=== PATIENT | female | born 1940 | race Caucasian/White ===

== ENCOUNTER 2016-08-22 17:10 | Inpatient (IN) | payer MEDICARE, MEDICAID ==
[~2016-08-22] VITALS: Ht 167.6 cm; Wt 75.8 kg
--- OUTSIDE RECORDS SUMMARY | 2016-08-22 17:16 | XMS REPORT | Continuity of Care Document ---
Author Author [facility] Organization [facility] Address Unknown Phone Unavailable Support Name Relationship Address Phone PENNY FISCHER MD Caregiver [address] [place] [address] [facility] Next Of Kin [address] [place] [id number] Insurance Providers Payer Name Policy Number Subscriber Name Relationship Medicare A And B [id number] Nina Brush 17 Self / Same As Patient Problems Active Problems Medical Problem Onset Date Status Chest pain Unknown Acute Medications Current Home Medications Medication Dose Units Route Directions Days/Qty Instructions Start Date Aspirin 81 Mg 81 Mg ORAL Daily 10/17/15 Atorvastatin Calcium 40 Mg 40 Mg ORAL Bedtime 10/17/15 Calcium Carbonate/Vitamin D3 1 Each 1 Each ORAL 4X Day Before Meals/At Bedtime 10/17/15 Diltiazem Hcl 240 Mg 240 Mg ORAL Daily 10/17/15 Hydrochlorothiazide 25 Mg 25 Mg ORAL Daily 10/17/15 Sennosides/Docusate Sodium 1 Each 1 Each ORAL Twice A Day 10/17/15 Acetaminophen (Tylenol) 325 Mg 325 Mg ORAL As Directed as needed for Pain 10/17/15 Social History No social history. Hospital Discharge Instructions Current inpatient/outpatient. Discharge instructions are currently unavailable. Plan of Care Prescriptions Functional Status No functional status results. Allergies, Adverse Reactions, Alerts Allergen Type Severity Reaction Status Last Updated Penicillin Allergy Unknown Active 10/17/15 Sulfa (Sulfonamide Antibiotics) Allergy Unknown Active 10/17/15 Iodine Allergy Unknown Active 10/17/15 latex Allergy Unknown Active 10/17/15 Immunizations No immunization records. Vital Signs Acute Vital Signs Vital Response Date/Time Temperature (Fahrenheit) 97.6 10/17/2015 9:06am Pulse 86 bpm 10/17/2015 9:06am Respirations 20 10/17/2015 9:06am Results Pending Laboratory Results Test Name Collection Date/Time Procedures Procedure Status Date Provider(s) X-RAY EXAM KNEE 4 OR MORE Completed 10/07/15 Encounters Encounter Location Arrival/Admit Date Discharge/Depart Date Attending Provider Registered Clinic [facility] 10/17/15 9:07am PENNY FISCHER MD Departed Emergency Room [facility] 10/17/15 8:37am 10/17/15 11:31am PENNY FISCHER MD Registered [facility] 10/14/15 1:33pm VIRAJ YADAV MD Registered Clinic [facility] 10/07/15 3:38pm VIRAJ YADAV MD
--- OUTSIDE RECORDS SUMMARY | 2016-08-22 17:16 | XMS REPORT | Continuity of Care Document ---
Author Author [facility] Organization [facility] Address Unknown Phone Unavailable Care Team Providers Care Landscape Horticulture Instructor Name Role Phone VIRAJ YADAV MD Primary Care Physician [phone] Insurance Providers Payer Name Policy Number Subscriber Name Relationship Medicare A And B [id number] Nina Brush 17 Self / Same As Patient Advance Directives Directive Response Recorded Date/Time Advanced Directives Yes 08/02/16 7:46am Type Durable Power of Academic Coach 08/02/16 7:46am Chief Complaint and Reason for Visit Chief Complaint Injury Reason for Visit [id number] Problems Active Problems Medical Problem Onset Date Status Abdominal pain ~12/20/2015 Acute Bladder wall thickening ~12/20/2015 Acute Chest pain Unknown Acute Contusion of hip, right Unknown Acute Nausea & vomiting ~12/20/2015 Acute Medications Current Home Medications Medication Dose Units Route Directions Days/Qty Instructions Start Date Aspirin 81 Mg 325 Mg ORAL Daily 10/17/15 Atorvastatin Calcium 40 Mg 40 Mg ORAL Bedtime 10/17/15 Calcium Carbonate/Vitamin D3 1 Each 1 Each ORAL 4X Day Before Meals/At Bedtime 10/17/15 Diltiazem Hcl 240 Mg 240 Mg ORAL Daily 10/17/15 Hydrochlorothiazide 25 Mg 25 Mg ORAL Daily 10/17/15 Potassium Chloride 10 Meq 20 Meq ORAL Twice A Day 12/20/15 Ondansetron Hcl 4 Mg 4 Mg ORAL Every 4HRS 10 12/20/15 Simethicone (Mylicon) 80 Mg 80 Mg ORAL Three Times A Day 08/02/16 Acetaminophen/Codeine 1 Tab 1-2 Tab ORAL Every 4HRS as needed for Pain 08/02/16 Past Home Medications Medication Directions Ordered Status Sennosides/Docusate Sodium 1 Each Tablet, 1 Each Oral Twice A Day 10/17/15 Discontinued Acetaminophen (Tylenol) 325 Mg Tablet, 325 Mg Oral As Directed as needed for Pain 10/17/15 Discontinued Social History Query Response Start Date Stop Date Smoking Status Unknown, if ever smoked Hospital Discharge Instructions No hospital discharge instructions. Plan of Care Discharge Date 08/02/16 9:44am Disposition 01 HOME OR SELF-CARE Condition at Discharge Stable Instructions/Education Provided Contusion (DC) Prescriptions See Medication Section Referrals VIRAJ YADAV MD - Additional Instructions/Education Ice or heat to area of pain for 20 minutes at a time at least twice a day. Return if symptoms worsen, if new symptoms develop, or for any other concerns. Some of your test results may not be complete prior to your leaving the Emergency Department. The Emergency Department is not authorized to give test results over the phone. Please contact the doctor's office listed in this packet of information for your final results. Follow up with your primary care physician or return to the Emergency Department for worsening or worrisome symptoms. * Emergency Department phone number: [phone], x [phone] MEDICAL RECORD If you need copies of your X-rays, call [phone]. If you need copies of your medical record, including lab results, a signed authorization for release of records will be required. A telephone call for release of Health Information is not allowed. BILLING Billing can sometimes be confusing and frustrating. To help avoid confusion in the future, please take a moment to acquaint yourself with the billing parties for services. SERVICE BILLING [facility] Emergency Room Services [facility] Physician Services [facility] X-rays [facility] Patients will receive bills for services from the appropriate provider. If you have any questions about your [facility] bill, our staff will be happy to assist you. Please call [phone], and ask for the billing department. THANK YOU for choosing [facility] as your emergency care provider! Care Plan and Goals ~~Discharge Care Plan~~ Problem: Contusion, pain to affected area, fall. Goal: Decreased contusion and pain to affected area. Instructions: Apply ice to area for 15-20 minutes every 3-4 hours. Elevate extremity above the level of the heart, if applicable. Splint area with pillow or blanket to any chest/abdomen injuries. Use incentive spirometry as directed. Take at least 10 deep breaths per hour. Take medication(s) as directed. Follow up with regular physician or specialist as directed. Exercise as tolerated or directed by physician. Functional Status No functional status results. Allergies, Adverse Reactions, Alerts Allergen Type Severity Reaction Status Last Updated Penicillin Allergy Unknown Active 08/02/16 Sulfa (Sulfonamide Antibiotics) Allergy Unknown Active 08/02/16 Iodine Allergy Unknown Active 08/02/16 latex Allergy Unknown Active 08/02/16 Immunizations No immunization records. Vital Signs Acute Vital Signs Vital Response Date/Time Temperature (Fahrenheit) 98.4 08/02/2016 9:43am Pulse 95 bpm 08/02/2016 9:43am Respirations 17 08/02/2016 9:43am Height 5 ft 7 in Weight 160 lb Body Mass Index 25.0 kg/m^2 Results Laboratory Results Test Name Result Units Flags Reference Collection Date/Time Result Date/ Time Comments White Blood Count 4.78 10^3uL 4.0-11.0 08/02/2016 7:50am 08/02/2016 8: 04am Red Blood Count 4.03 10^6uL 4.00-5.00 08/02/2016 7:50am 08/02/2016 8: 04am Hemoglobin 12.2 g/dL 12.0-15.5 08/02/2016 7:50am 08/02/2016 8:04am Hematocrit 35.40 % 35.00-45.00 08/02/2016 7:50am 08/02/2016 8:04am Mean Corpuscular Volume 88 FL 80-100 08/02/2016 7:50am 08/02/2016 8: 04am Mean Corpuscular Hemoglobin 30.3 PG 26.0-34.0 08/02/2016 7:50am 2016 8:04am Mean Corpuscular Hemoglobin Concent 34.5 g/dL 31.0-37.0 08/02/2016 7: 50am 08/02/2016 8:04am Red Cell Distribution Width 12.3 % 11.8-15.6 08/02/2016 7:50am 2016 8:04am Platelet Count 259 10^3uL 150-450 08/02/2016 7:50am 08/02/2016 8:04am Mean Platelet Volume 10.4 FL H 6.0-9.5 08/02/2016 7:50am 08/02/2016 8: 04am Neutrophils (%) (Auto) 46 % L 51-67 08/02/2016 7:50am 08/02/2016 8:04am Lymphocytes (%) (Auto) 39 % 20-46 08/02/2016 7:50am 08/02/2016 8:04am Monocytes (%) (Auto) 10 % 3-11 08/02/2016 7:50am 08/02/2016 8:04am Eosinophils (%) (Auto) 5 % H 0-4 08/02/2016 7:50am 08/02/2016 8:04am Basophils (%) (Auto) 0 % 0-2 08/02/2016 7:50am 08/02/2016 8:04am Neutrophils # (Auto) 2.2 X10^3 08/02/2016 7:50am 08/02/2016 8:04am Lymphocytes # (Auto) 1.9 X10^3 08/02/2016 7:50am 08/02/2016 8:04am Monocytes # (Auto) 0.5 X10^3 08/02/2016 7:50am 08/02/2016 8:04am Eosinophils # (Auto) 0.2 10^3uL 08/02/2016 7:50am 08/02/2016 8:04am Basophils # (Auto) 0.0 10^3uL 08/02/2016 7:50am 08/02/2016 8:04am Prothrombin Time 13.5 SEC H 10.0-12.5 08/02/2016 7:50am 08/02/2016 8: 25am Prothromb Time International Ratio 1.2 0.8-1.4 08/02/2016 7:50am 8:25am Activated Partial Thromboplast Time 30.0 SEC 26.3-36.8 08/02/2016 7: 50am 08/02/2016 8:25am Sodium Level 139 mmol/L # 135-150 08/02/2016 7:50am 08/02/2016 8:26am Potassium Level 3.0 mmol/L L 3.5-5.1 08/02/2016 7:50am 08/02/2016 8: 26am Chloride Level 102 mmol/L 98-108 08/02/2016 7:50am 08/02/2016 8:26am Carbon Dioxide Level 27 mmol/L 22-29 08/02/2016 7:50am 08/02/2016 8: 26am Anion Gap 12.8 MEQ/L -08/02/2016 7:50am 08/02/2016 8:26am Blood Urea Nitrogen 8 mg/dL 7-18 08/02/2016 7:50am 08/02/2016 8:26am Creatinine 0.67 mg/dL 0.6-1.2 08/02/2016 7:50am 08/02/2016 8:26am BUN/Creatinine Ratio 12 10-20 08/02/2016 7:50am 08/02/2016 8:26am Estimat Glomerular Filtration Rate 103.3 08/02/2016 7:50am 2016 8:26am Estimated GFR (Non- 85.4 08/02/2016 7:50am 2016 8:26am Glucose Level 93 mg/dL # 70-110 08/02/2016 7:50am 08/02/2016 8:26am Calculated Osmolality 266 mosm/L L 280-300 08/02/2016 7:50am 08/02/2016 8:26am Calcium Level 9.9 mg/dL 8.8-10.8 08/02/2016 7:50am 08/02/2016 8:26am Calcium/Ionized Calcium Ratio 4.4 mg/dL 3.8-4.6 08/02/2016 7:50am 08/02 8:26am Total Bilirubin 0.9 mg/dL 0.1-1.0 08/02/2016 7:50am 08/02/2016 8:26am Alkaline Phosphatase 146 U/L H 38-126 08/02/2016 7:50am 08/02/2016 8: 26am Aspartate Amino Transf (AST/SGOT) 35 U/L 15-37 08/02/2016 7:50am 2016 8:26am Alanine Aminotransferase (ALT/SGPT) 41 U/L 30-65 08/02/2016 7:50am 8:26am Total Protein 7.0 g/dL 6.4-8.5 08/02/2016 7:50am 08/02/2016 8:26am Albumin 3.8 g/dL 3.4-5.0 08/02/2016 7:50am 08/02/2016 8:26am Albumin/Globulin Ratio 1.187 1.1-1.8 08/02/2016 7:50am 08/02/2016 8: 26am Procedures No known history of procedures. Encounters Encounter Location Arrival/Admit Date Discharge/Depart Date Attending Provider Departed Emergency Room [facility] 08/02/16 7:45am 08/02/16 9:44am JEAN MARIE BULLARD MD Registered Clinic [facility] 08/02/16 7:35am JEAN MARIE BULLARD MD Recent Diagnosis
--- OUTSIDE RECORDS SUMMARY | 2016-08-22 17:16 | XMS REPORT | Continuity of Care Document ---
Author Author [facility] Address Unknown Phone Unavailable Allergies Active Description Code Type Severity Reaction Onset Reported/Identified Relationship to Patient Clinical Status Yes Latex 8921 Unknown N/A Yes iodine 852 1 N/A N/A Yes latex 8921 1 N/A N/A Yes Sulfa (Sulfonamide Antibiotics) 491 3 N/A N/A Yes Iodine 852 Unknown SWELLING 09/07/2005 Yes Prednisone 2164 Unknown RASH 09/07/2005 Yes Sulfa (Sulfonamide Antibiotics) 491 Unknown RASH 09/07/2005 Yes iodine [id number] Drug Allergy Unknown N/A 08/02/2016 Yes latex [id number] Drug Allergy Unknown N/A 08/02/2016 Yes Penicillins [id number] Drug Allergy Unknown N/A 08/02/2016 Yes Sulfa (Sulfonamide Antibiotics) [id number] Drug Allergy Unknown N/A 08/02/2016 Medications Problems Date Dx Coded Attending Type Code Diagnosis Diagnosed By 10/11/2015 VIRAJ YADAV MD, Ot S82.035A NONDISPLACED TRANSVERSE FRACTURE OF LEFT 10/11/2015 VIRAJ YADAV MD, Ot X58.XXXA EXPOSURE TO OTHER SPECIFIED FACTORS, INI 10/13/2015 VIRAJ YADAV MD, Ot S82.035A NONDISPLACED TRANSVERSE FRACTURE OF LEFT 10/13/2015 VIRAJ YADAV MD, Ot X58.XXXA EXPOSURE TO OTHER SPECIFIED FACTORS, INI 10/14/2015 VIRAJ YADAV MD, Ot S82.035A NONDISPLACED TRANSVERSE FRACTURE OF LEFT 10/14/2015 VIRAJ YADAV MD, Ot X58.XXXA EXPOSURE TO OTHER SPECIFIED FACTORS, INI 10/14/2015 VIRAJ YADAV MD, Ot S82.035A NONDISPLACED TRANSVERSE FRACTURE OF LEFT 10/14/2015 VIRAJ YADAV MD, Ot X58.XXXA EXPOSURE TO OTHER SPECIFIED FACTORS, INI 10/17/2015 VIRAJ YADAV MD Ot S82.035A NONDISPLACED TRANSVERSE FRACTURE OF LEFT 10/17/2015 VIRAJ YADAV MD Ot X58.XXXA EXPOSURE TO OTHER SPECIFIED FACTORS, INI 10/17/2015 VIRAJ YADAV MD Ot S82.035A NONDISPLACED TRANSVERSE FRACTURE OF LEFT 10/17/2015 VIRAJ YADAV MD Ot X58.XXXA EXPOSURE TO OTHER SPECIFIED FACTORS, INI 10/17/2015 PENNY FISCHER MD Ot I10 ESSENTIAL (PRIMARY) HYPERTENSION 10/17/2015 PENNY FISCHER MD Ot I25.10 ATHSCL HEART DISEASE OF [place] CORONARY 10/17/2015 PENNY FISCHER MD Ot R07.2 PRECORDIAL PAIN 10/17/2015 PENNY FISCHER MD Ot R07.89 OTHER CHEST PAIN 10/17/2015 PENNY FISCHER MD Ot Z95.5 PRESENCE OF CORONARY ANGIOPLASTY IMPLANT 10/17/2015 VIRAJ YADAV MD Ot S82.035A NONDISPLACED TRANSVERSE FRACTURE OF LEFT 10/17/2015 VIRAJ YADAV MD Ot X58.XXXA EXPOSURE TO OTHER SPECIFIED FACTORS, INI 10/19/2015 VIRAJ YADAV MD Ot S82.035A NONDISPLACED TRANSVERSE FRACTURE OF LEFT 10/19/2015 VIRAJ YADAV MD Ot X58.XXXA EXPOSURE TO OTHER SPECIFIED FACTORS, INI 10/19/2015 VIRAJ YADAV MD Ot S82.035A NONDISPLACED TRANSVERSE FRACTURE OF LEFT 10/19/2015 VIRAJ YADAV MD Ot X58.XXXA EXPOSURE TO OTHER SPECIFIED FACTORS, INI 10/20/2015 VIRAJ YADAV MD Ot I48.1 PERSISTENT ATRIAL FIBRILLATION 10/21/2015 VIRAJ YADAV MD Ot S82.035A NONDISPLACED TRANSVERSE FRACTURE OF LEFT 10/21/2015 VIRAJ YADAV MD Ot X58.XXXA EXPOSURE TO OTHER SPECIFIED FACTORS, INI 10/21/2015 VIRAJ YADAV MD Ot I48.1 PERSISTENT ATRIAL FIBRILLATION 10/21/2015 VIRAJ YADAV MD Ot S82.035A NONDISPLACED TRANSVERSE FRACTURE OF LEFT 10/21/2015 VIRAJ YADAV MD, Ot X58.XXXA EXPOSURE TO OTHER SPECIFIED FACTORS, INI 10/21/2015 VIRAJ YADAV MD, Ot I48.1 PERSISTENT ATRIAL FIBRILLATION 10/22/2015 VIRAJ YADAV MD, Ot I48.1 PERSISTENT ATRIAL FIBRILLATION 10/26/2015 PENNY FISCHER MD, Ot I10 ESSENTIAL (PRIMARY) HYPERTENSION 10/26/2015 PENNY FISCHER MD, Ot I25.10 ATHSCL HEART DISEASE OF [place] CORONARY 10/26/2015 PENNY FISCHER MD Ot R07.2 PRECORDIAL PAIN 10/26/2015 PENNY FISCHER MD Ot R07.89 OTHER CHEST PAIN 10/26/2015 PENNY FISCHER MD, Ot Z95.5 PRESENCE OF CORONARY ANGIOPLASTY IMPLANT 10/26/2015 PENNY FISCHER MD Ot R07.89 OTHER CHEST PAIN 10/27/2015 VIRAJ YADAV MD, Ot E03.4 ATROPHY OF THYROID (ACQUIRED) 10/27/2015 VIRAJ YADAV MD, Ot E78.0 PURE HYPERCHOLESTEROLEMIA 10/27/2015 VIRAJ YADAV MD, Ot K71.2 TOXIC LIVER DISEASE WITH ACUTE HEPATITIS 10/27/2015 VIRAJ YADAV MD, Ot E03.4 ATROPHY OF THYROID (ACQUIRED) 10/27/2015 VIRAJ YADAV MD, Ot E78.0 PURE HYPERCHOLESTEROLEMIA 10/27/2015 VIRAJ YADAV MD, Ot K71.2 TOXIC LIVER DISEASE WITH ACUTE HEPATITIS 10/28/2015 VIRAJ YADAV MD, Ot E03.4 ATROPHY OF THYROID (ACQUIRED) 10/28/2015 VIRAJ YADAV MD, Ot E78.0 PURE HYPERCHOLESTEROLEMIA 10/28/2015 VIRAJ YADAV MD, Ot K71.2 TOXIC LIVER DISEASE WITH ACUTE HEPATITIS 10/29/2015 VIRAJ YADAV MD, Ot D50.8 OTHER IRON DEFICIENCY ANEMIAS 10/29/2015 VIRAJ YADAV MD, Ot E03.4 ATROPHY OF THYROID (ACQUIRED) 10/29/2015 VIRAJ YADAV MD, Ot E78.0 PURE HYPERCHOLESTEROLEMIA 10/29/2015 VIRAJ YADAV MD, Ot G72.0 DRUG-INDUCED MYOPATHY 10/29/2015 VIRAJ YADAV MD, Ot K71.2 TOXIC LIVER DISEASE WITH ACUTE HEPATITIS 10/29/2015 VIRAJ YADAV MD, Ot M81.0 AGE-RELATED OSTEOPOROSIS W/O CURRENT PAT 10/29/2015 VIRAJ YADAV MD, Ot R79.89 OTHER SPECIFIED ABNORMAL FINDINGS OF BLO 10/29/2015 VIRAJ YADAV MD, Ot S82.035A NONDISPLACED TRANSVERSE FRACTURE OF LEFT 10/29/2015 VIRAJ YADAV MD, Ot X58.XXXA EXPOSURE TO OTHER SPECIFIED FACTORS, INI 11/01/2015 VIRAJ YADAV MD, Ot M19.011 PRIMARY OSTEOARTHRITIS, RIGHT SHOULDER 11/05/2015 VIRAJ YADAV MD, Ot I48.1 PERSISTENT ATRIAL FIBRILLATION 11/15/2015 PENNY FISCHER MD, Ot R07.89 OTHER CHEST PAIN 11/16/2015 VIRAJ YADAV MD, Ot D50.8 OTHER IRON DEFICIENCY ANEMIAS 11/16/2015 VIRAJ YADAV MD, Ot E03.4 ATROPHY OF THYROID (ACQUIRED) 11/16/2015 VIRAJ YADAV MD, Ot E78.0 PURE HYPERCHOLESTEROLEMIA 11/16/2015 VIRAJ YADAV MD, Ot G72.0 DRUG-INDUCED MYOPATHY 11/16/2015 VIRAJ YADAV MD, Ot K71.2 TOXIC LIVER DISEASE WITH ACUTE HEPATITIS 11/16/2015 VIRAJ YADAV MD, Ot M81.0 AGE-RELATED OSTEOPOROSIS W/O CURRENT PAT 11/16/2015 VIRAJ YADAV MD, Ot R79.89 OTHER SPECIFIED ABNORMAL FINDINGS OF BLO 11/17/2015 VIRAJ YADAV MD, Ot M19.011 PRIMARY OSTEOARTHRITIS, RIGHT SHOULDER 11/28/2015 W M12.811 Rotator cuff tear arthropathy of right shoulder 12/20/2015 FORREST CASTILLO MD Ot N32.89 OTHER SPECIFIED DISORDERS OF BLADDER 12/20/2015 FORREST CASTILLO MD Ot R10.84 GENERALIZED ABDOMINAL PAIN 12/20/2015 FORREST CASTILLO MD Ot R11.2 NAUSEA WITH VOMITING, UNSPECIFIED 12/30/2015 FORREST CASTILLO MD Ot N32.89 OTHER SPECIFIED DISORDERS OF BLADDER 12/30/2015 FORREST CASTILLO MD Ot R10.84 GENERALIZED ABDOMINAL PAIN 12/30/2015 FORREST CASTILLO MD Ot R11.2 NAUSEA WITH VOMITING, UNSPECIFIED 01/07/2016 VICENTA FLORES, VIRAJ Raymundo Ot K57.32 DVTRCLI OF LG INT W/O PERFORATION OR ABS 01/11/2016 VIRAJ YADAV MD Ot K57.32 DVTRCLI OF LG INT W/O PERFORATION OR ABS 02/04/2016 VIRAJ YADAV MD, Ot K57.32 DVTRCLI OF LG INT W/O PERFORATION OR ABS 02/26/2016 LEONEL MILES S D50.9 IRON DEFICIENCY ANEMIA, UNSPECIFIED [place] 02/26/2016 LEONEL MILES E78.5 HYPERLIPIDEMIA, UNSPECIFIED [place] 02/26/2016 LOENEL MILES E87.6 HYPOKALEMIA [place] 02/26/2016 LE[place] MILES I10 ESSENTIAL (PRIMARY) HYPERTENSION [place] 02/26/2016 LEONEL MILES S I25.10 ATHEROSCLEROTIC HEART DISEASE OF [place] CORONARY ARTERY WITHOUT ANGINA PECTORIS [place] 02/26/2016 LEONEL MILES I25.2 OLD MYOCARDIAL INFARCTION [place] 02/26/2016 LEONEL MILES I48.91 UNSPECIFIED ATRIAL FIBRILLATION [place] 02/26/2016 [place] MILES M06.9 RHEUMATOID ARTHRITIS, UNSPECIFIED [place] 02/26/2016 [place] P R07.89 OTHER CHEST PAIN [place] 02/26/2016 [place] S Z95.5 PRESENCE OF CORONARY ANGIOPLASTY IMPLANT AND GRAFT [place] 02/26/2016 LENO[place] MILES R06.9 UNSPECIFIED ABNORMALITIES OF BREATHING [place] 03/24/2016 W M12.811 Rotator cuff tear arthropathy of right shoulder 04/24/2016 W M12.811 Rotator cuff tear arthropathy of right shoulder 04/24/2016 W S49.91XA Right shoulder injury, initial encounter 04/24/2016 LEONEL MILES P M54.5 LOW BACK PAIN [place] 05/24/2016 VICENTA FLORES, VIRAJ Raymundo Ot Z85.51 PERSONAL HISTORY OF MALIGNANT NEOPLASM O 06/12/2016 VICENTA FLORES, VIRAJ R Ot Z85.51 PERSONAL HISTORY OF MALIGNANT NEOPLASM O 08/02/2016 JEAN MARIE BULLARD MD Ot S70.01XA CONTUSION OF RIGHT HIP, INITIAL ENCOUNTE 08/02/2016 JEAN MARIE BULLARD MD Ot W05.0XXA FALL FROM NON-MOVING WHEELCHAIR, INITIAL 08/02/2016 JEAN MARIE BULLARD MD Ot Y92.[address] IN C[facility] PLACE 08/02/2016 JEAN MARIE BULLARD MD Ot Y93.89 ACTIVITY, OTHER SPECIFIED 08/02/2016 JEAN MARIE BULLARD MD Ot Z91.81 HISTORY OF FALLING 08/04/2016 JEAN MARIE BULLARD MD Ot S70.01XA CONTUSION OF RIGHT HIP, INITIAL ENCOUNTE 08/04/2016 JEAN MARIE BULLARD MD Ot W05.0XXA FALL FROM NON-MOVING WHEELCHAIR, INITIAL 08/04/2016 JEAN MARIE BULLARD MD Ot Y92.[address] IN [facility] PLACE 08/04/2016 JEAN MARIE BULLARD MD Ot Y93.89 ACTIVITY, OTHER SPECIFIED 08/04/2016 JEAN MARIE BULLARD MD Ot Z91.81 HISTORY OF FALLING 08/07/2016 JEAN MARIE BULLARD MD Ot M25.551 PAIN IN RIGHT HIP 08/07/2016 JEAN MARIE BULLARD MD Ot W05.0XXA FALL FROM NON-MOVING WHEELCHAIR, INITIAL 08/07/2016 JEAN MARIE BULLARD MD Ot Y92.[address] IN C[facility] PLACE Procedures Code Description [place] [address] OFFICE/OUTPATIENT VISIT NEW 11/11/201507847 DRAIN/INJ JOINT/BURSA W/O US 11/23/2015 94494 OFFICE/OUTPATIENT VISIT EST 11/23/2015 J1030 Methylprednisolone 40 MG inj 11/23/2015 J3490 Drugs unclassified injection 11/23/2015 58604 No Charge Visit 03/21/2016 DRAIN/INJ JOINT/BURSA W/O US 03/21/2016 J1030 Methylprednisolone 40 MG inj 03/21/2016 J3490 Drugs unclassified injection 03/21/2016 Results Test Result Range Complete blood count (CBC) with automated white blood cell (WBC) differential - 12/20/15 12:44 Blood automated leukocyte count 8.45 4.0 -11.0 Erythrocytes 4.40 4.00-5.00 12.0-16.0;g/dL 13.4 12.0-15.5 Hematocrit 37.70 35.00-45.00 Automated erythrocyte mean corpuscular volume 86 80-100 Mean corpuscular hemoglobin (MCH) determination 30.5 26.0-34.0 Automated erythrocyte mean corpuscular hemoglobin concentration measurement ( mass/volume) 35.5 31.0-37.0 Erythrocyte distribution width 13.1 11.8 -15.6 Automated blood platelet count 270 150- 450 Automated blood platelet mean volume measurement 10.2 6.0-9.5 Automated neutrophil percentage 84 51- 67 Lymphocytes/100 leukocytes 10 20-46 Automated monocyte percentage 6 3-11 Eosinophil count auto 0 0-4 Automated basophil percentage 0 0-2 Automated blood neutrophil count 7.1 Blood lymphocytes count (number/volume) 0.9 Automated blood monocyte count 0.5 Blood absolute eosinophil count 0.0 Basophils 0.0 Comprehensive metabolic panel - 12/20/15 12:44 Sodium measurement 134 70-110 Carbon dioxide measurement 24 22-29 Serum or plasma anion gap 17.8 3-15 BLOOD UREA NITROGEN 10 7-18 CREATININE SERUM 0.46 0.6-1.2 Brucella species antibody panel (IgG, IgM) 22 10-20 Estimated glomerular filtration rate (GFR) 159.8 Estimated glomerular filtration rate (GFR) non- 132.1 OSMOLALITY,CALCULATED 252 280-300 CALCIUM 10.1 8.8-10.8 Calculated ionized calcium measurement 4.3 3.8-4.6 BILIRUBIN,TOTAL 1.5 0.1-1.0 Serum or plasma alkaline phosphatase measurement 121 38-126 ASPARTATE AMINO TRANSFERASE 31 15-37 ALANINE AMINOTRANSFERASE 23 30-65 Serum or plasma total protein measurement 7.7 6.4-8.5 Serum or plasma albumin measurement 4.5 3.4-5.0 Serum or plasma albumin/globulin mass ratio 1.406 1.1-1.8 Lipase measurement - 12/20/15 12:44 Lipase measurement 271 23-300 UA CULTURE IF INDICATED* - 12/20/15 13:10 COLLECTION METHOD RANDOM VOIDED Color of urine by auto Yellow Urine appearance determination Cloudy Urine pH measurement by automated test strip 7.5 5.0 - 8.0 Specific gravity of urine by automated test strip 1.020 1.005-1.030 Urine protein measurement by test strip (mass/volume) 1+ Negative Urine glucose detection by automated test strip Negative Negative Urine erythrocytes count by automated test strip (number/volume) Trace-lysed Negative Urine ketones detection by automated test strip 1+ Negative Urine nitrite detection by test strip Negative Negative Urine total bilirubin detection by automated test strip Negative Negative Urine urobilinogen measurement by automated test strip (mass/volume) 0.2 0.2-1.0 Urine leukocyte esterase detection by dipstick Negative Negative Microscopic examination of urine - 12/20/15 13:10 Urine volume measurement 12 mL Urine erythrocytes detection by automated method 0-2 Automated urine sediment leukocyte count by microscopy (number/high power field ) Bacteria None Seen SQUAMOUS EPITHELIAL CELL,UR 2-5 MUCOUS,URINE 1+ Amorphous sediment detection in urine sediment by light microscopy 3+ URINALYSIS, DIPSTICK ONLY - 04/18/16 15:30 COLOR STRAW STRAW CLARITY/APPEARANCE CLEAR CLEAR BILIRUBIN URINE HEADER Interpret positive Bilirubin results with caution. Large amounts of urobilinogen in the urine affect the color change of the bilirubin test (false positive). Highly basic urines (pH>9) might show false-positive readings on bilirubin. False-positive readings are obtained during treatment with imipenem, penicillin, and p- aminosalicyclic acid. UROBILINOGEN (URINALYSIS) NORMAL NORMAL SP GRAV 1.015 1.005-1.025 PH 6.0 6.0-8.0 LEUKO NEG NEG NITRITE NEG NEG PROTEIN NEG. NEG. GLUCOSE NORMAL NORMAL KETONES NEG NEG BILIRUBIN NEG NEG BLOOD NEG NEG CBC NO DIFF (HEMOGRAM) - 04/18/16 15:30 WBC - WHITE CELL COUNT 10.2 X10(3) 4.5-11.0 RBC - RED CELL COUNT 4.65 X10(6) 4.20-5.40 PLATELET COUNT 272 X10(3) 150-450 HEMOGLOBIN 14.5 g/dl 12.0-16.0 HEMATOCRIT 42.1 % 38.0-47.0 MCV 90.5 fL 80.0-96.0 MCH 31 pg 27-31 MCHC 34.4 % 32.0-36.0 CULTURE, URINE - 04/18/16 15:30 Urine Culture Source: Urine Collected: 04/18/16 15:30 Complete blood count (CBC) with automated white blood cell (WBC) differential - 08/02/16 07:50 Blood automated leukocyte count 4.78 4.0 -11.0 Erythrocytes 4.03 4.00-5.00 12.0-16.0;g/dL 12.2 12.0-15.5 Hematocrit 35.40 35.00-45.00 Automated erythrocyte mean corpuscular volume 88 80-100 Mean corpuscular hemoglobin (MCH) determination 30.3 26.0-34.0 Automated erythrocyte mean corpuscular hemoglobin concentration measurement ( mass/volume) 34.5 31.0-37.0 Erythrocyte distribution width 12.3 11.8 -15.6 Automated blood platelet count 259 150- 450 Automated blood platelet mean volume measurement 10.4 6.0-9.5 Automated neutrophil percentage 46 51- 67 Lymphocytes/100 leukocytes 39 20-46 Automated monocyte percentage 10 3-11 Eosinophil count auto 5 0-4 Automated basophil percentage 0 0-2 Automated blood neutrophil count 2.2 Blood lymphocytes count (number/volume) 1.9 Automated blood monocyte count 0.5 Blood absolute eosinophil count 0.2 Basophils 0.0 Prothrombin time (PT) with international normalized ratio (INR) - 08/02/16 07: 50 Prothrombin time (PT) in platelet poor plasma by coagulation assay 13.5 10.0-12.5 INR 1.2 0.8-1.4 Activated partial thromboplastin time (aPTT) in platelet poor plasma bycoagulation assay - 08/02/16 07:50 Activated partial thromboplastin time (aPTT) in platelet poor plasma bycoagulation assay 30.0 26.3-36.8 Comprehensive metabolic panel - 08/02/16 07:50 Sodium measurement 93 70-110 CARBON DIOXIDE 27 22-29 Serum or plasma anion gap 12.8 3-15 BLOOD UREA NITROGEN 8 7-18 CREATININE SERUM 0.67 0.6-1.2 Brucella species antibody panel (IgG, IgM) 12 10-20 Estimated glomerular filtration rate (GFR) 103.3 Estimated glomerular filtration rate (GFR) non- 85.4 OSMOLALITY,CALCULATED 266 280-300 CALCIUM 9.9 8.8-10.8 Calculated ionized calcium measurement 4.4 3.8-4.6 BILIRUBIN,TOTAL 0.9 0.1-1.0 Serum or plasma alkaline phosphatase measurement 146 38-126 ASPARTATE AMINO TRANSFERASE 35 15-37 ALANINE AMINOTRANSFERASE 41 30-65 Serum or plasma total protein measurement 7.0 6.4-8.5 Serum or plasma albumin measurement 3.8 3.4-5.0 Serum or plasma albumin/globulin mass ratio 1.187 1.1-1.8 Encounters ACCT No. Visit Date/Time Discharge Status Pt. Type Provider Facility Loc./Unit Complaint [id number] 08/02/2016 07:45:00 2016 09:44:00 DIS Emergency JUAN MIGUEL FLORES, [facility] ED [id number] 12/20/2015 11:45:00 2015 19:19:00 DIS Emergency ANNA FLORES, [facility] ED [id number] 10/17/2015 08:37:00 2015 11:31:00 DIS Emergency AALIYAH FLORES, [facility] ED [id number] 08/02/2016 07:35:00 ACT Outpatient JUAN MIGUEL FLORES, [facility] EMS [id number] 05/18/2016 10:44:00 ACT Outpatient VICENTA FLORES , [facility] RAD BLADDER TUMOR R SIDE [id number] 01/05/2016 09:22:00 ACT Outpatient VICENTA FLORES , [facility] LAB [id number] 10/28/2015 09:43:00 ACT Outpatient VICENTA FLORES , [facility] RAD [id number] 10/27/2015 16:16:00 ACT Outpatient VICENTA FLORES , [facility] LAB [id number] 10/17/2015 09:07:00 ACT Outpatient AALIYAH FLORES, [facility] EMS [id number] 10/14/2015 13:33:00 ACT Outpatient VICENTA FLORES , [facility] RT [id number] 10/07/2015 15:38:00 ACT Outpatient VICENTA FOLRES , [facility] RAD
--- OUTSIDE RECORDS SUMMARY | 2016-08-22 17:16 | XMS REPORT | Continuity of Care Document ---
Author Author [facility] Organization [facility] Address Unknown Phone Unavailable Care Team Providers Care Customer Solutions Specialist Name Role Phone VIRAJ VAIL MD Primary Care Physician [phone] Insurance Providers Payer Name Policy Number Subscriber Name Relationship Medicare A And B [id number] Nina Brush 18 Self / Same As Patient Advance Directives Directive Response Recorded Date/Time Advanced Directives Unknown 12/20/15 11:49am Chief Complaint and Reason for Visit Chief Complaint GI Complaint Reason for Visit Abdominal pain Nausea & vomiting Bladder wall thickening Problems Active Problems Medical Problem Onset Date Status Abdominal pain Unknown Acute Bladder wall thickening Unknown Acute Chest pain Unknown Acute Nausea & vomiting Unknown Acute Medications Current Home Medications Medication [...] As Directed as needed for Pain 10/17/15 Potassium Chloride 10 Meq 20 Meq ORAL Daily 12/20/15 Ondansetron Hcl 4 Mg 4 Mg ORAL Every 4HRS 10 12/20/15 Social History Query Response Start Date Stop Date Smoking Status Unknown, if ever smoked Hospital Discharge Instructions No hospital discharge instructions. Plan of Care Discharge Date 12/20/15 7:19pm Disposition 01 HOME OR SELF-CARE Condition at Discharge Stable Instructions/Education Provided Acute Nausea and Vomiting (ED) Acute Abdominal Pain (ED) Prescriptions See Medication Section Referrals VIRAJ VAIL MD - Additional Instructions/Education Follow up with Dr. Vail tomorrow if symptoms persist Zofran 4 mg ODT - dissolve in mouth every 6 hours as needed for nausea/vomiting Follow up with Dr. Vail within the next week to discuss the CT findings regarding your bladder. Return if symptoms worsen Clear diet - advance as tolerated Some of your test results may not [...] worrisome symptoms. * Emergency Department phone number: [phone], x [phone]* MEDICAL RECORD If you need copies of your X-rays, call [phone] x [phone]. If you need copies of [...] the billing parties for services. SERVICE BILLING [facility] Emergency Room Services [facility] Physician Services [facility] X-rays [facility] Patients will receive bills for services from the appropriate provider. If you have any questions about your [facility] bill, our staff will be happy to assist you. Please call [phone], and ask for the billing department. THANK YOU for choosing [facility] as your emergency care provider! Care Plan and Goals ~~Discharge Care Plan~~ Problem: Nausea, vomiting or diarrhea Goal: Decrease in nausea, vomiting or diarrhea Instructions: Encourage fluids approximately 6-8 glasses of water or noncarbonated fluids. Take medication(s) as directed. Follow home discharge instructions. Follow up with primary care physicians or production superintendent hydro as directed. Functional Status No functional status results. Allergies, Adverse Reactions, Alerts Allergen Type Severity Reaction Status Last Updated Penicillin Allergy Unknown Active 12/20/15 Sulfa (Sulfonamide Antibiotics) Allergy Unknown Active 12/20/15 Iodine Allergy Unknown Active 12/20/15 latex Allergy Unknown Active 12/20/15 Immunizations No immunization records. Vital Signs Acute Vital Signs Vital Response Date/Time Temperature (Fahrenheit) 98.8 12/20/2015 7:42pm Pulse 107 bpm 12/20/2015 7:42pm Respirations 18 12/20/2015 7:42pm Height 5 ft 7 in Weight 187 lb Body Mass Index 29.0 kg/m^2 Results Laboratory Results Test Name Result Units Flags Reference Collection Date/Time Result Date/ Time Comments White Blood Count 8.45 10^3uL 4.0-11.0 12/20/2015 12:44pm 12/20/2015 1: 55pm Red Blood Count 4.40 10^6uL 4.00-5.00 12/20/2015 12:44pm 12/20/2015 1: 55pm Hemoglobin 13.4 g/dL 12.0-15.5 12/20/2015 12:44pm 12/20/2015 1:55pm Hematocrit 37.70 % 35.00-45.00 12/20/2015 12:44pm 12/20/2015 1:55pm Mean Corpuscular Volume 86 FL 80-100 12/20/2015 12:44pm 12/20/2015 1: 55pm Mean Corpuscular Hemoglobin 30.5 PG 26.0-34.0 12/20/2015 12:44pm 2015 1:55pm Mean Corpuscular Hemoglobin Concent 35.5 g/dL 31.0-37.0 12/20/2015 12: 44pm 12/20/2015 1:55pm Red Cell Distribution Width 13.1 % 11.8-15.6 12/20/2015 12:44pm 2015 1:55pm Platelet Count 270 10^3uL 150-450 12/20/2015 12:44pm 12/20/2015 1:55pm Mean Platelet Volume 10.2 FL H 6.0-9.5 12/20/2015 12:44pm 12/20/2015 1: 55pm Neutrophils (%) (Auto) 84 % H 51-67 12/20/2015 12:44pm 12/20/2015 1: 55pm Lymphocytes (%) (Auto) 10 % L 20-46 12/20/2015 12:44pm 12/20/2015 1: 55pm Monocytes (%) (Auto) 6 % 3-11 12/20/2015 12:44pm 12/20/2015 1:55pm Eosinophils (%) (Auto) 0 % 0-4 12/20/2015 12:44pm 12/20/2015 1:55pm Basophils (%) (Auto) 0 % 0-2 12/20/2015 12:44pm 12/20/2015 1:55pm Neutrophils # (Auto) 7.1 X10^3 12/20/2015 12:44pm 12/20/2015 1:55pm Lymphocytes # (Auto) 0.9 X10^3 12/20/2015 12:44pm 12/20/2015 1:55pm Monocytes # (Auto) 0.5 X10^3 12/20/2015 12:44pm 12/20/2015 1:55pm Eosinophils # (Auto) 0.0 10^3uL 12/20/2015 12:44pm 12/20/2015 1:55pm Basophils # (Auto) 0.0 10^3uL 12/20/2015 12:44pm 12/20/2015 1:55pm Volume Urine Centrifuged 12 mL 12/20/2015 1:10pm 12/20/2015 5:57pm Urine Collection Type RANDOM VOIDED 12/20/2015 1:10pm 12/20/2015 5: 57pm Urine Color Yellow 12/20/2015 1:10pm 12/20/2015 5:54pm Urine Clarity Cloudy 12/20/2015 1:10pm 12/20/2015 5:54pm Urine pH 7.5 5.0 - 8.0 12/20/2015 1:10pm 12/20/2015 5:54pm Urine Specific [place] 1.020 1.005-1.030 12/20/2015 1:10pm 2015 5:54pm Urine Protein 1+ H Negative 12/20/2015 1:10pm 12/20/2015 5:54pm Urine Glucose (UA) Negative Negative 12/20/2015 1:10pm 12/20/2015 5: 54pm Urine RBC (Auto) Trace-lysed H Negative 12/20/2015 1:10pm 12/20/2015 5 :54pm Urine Ketones 1+ H Negative 12/20/2015 1:10pm 12/20/2015 5:54pm Urine Nitrite Negative Negative 12/20/2015 1:10pm 12/20/2015 5:54pm Urine Bilirubin Negative Negative 12/20/2015 1:10pm 12/20/2015 5: 54pm Urine Urobilinogen 0.2 mg/dL 0.2-1.0 12/20/2015 1:10pm 12/20/2015 5: 54pm Urine Leukocyte Esterase Negative Negative 12/20/2015 1:10pm 2015 5:54pm Urine RBC 0-2 /HPF 12/20/2015 1:10pm 12/20/2015 5:57pm Urine WBC 0-2 /HPF 12/20/2015 1:10pm 12/20/2015 5:57pm Urine Bacteria None Seen /HPF 12/20/2015 1:10pm 12/20/2015 5:57pm Urine Squamous Epithelial Cells 2-5 /LPF 12/20/2015 1:10pm 2015 5:57pm Urine Mucus 1+ 12/20/2015 1:10pm 12/20/2015 5:57pm Urine Amorphous Sediment 3+ /HPF H 12/20/2015 1:10pm 12/20/2015 5: 57pm Sodium Level 130 mmol/L L 135-150 12/20/2015 12:44pm 12/20/2015 2:11pm Potassium Level 3.3 mmol/L L 3.5-5.1 12/20/2015 12:44pm 12/20/2015 2: 11pm Chloride Level 91 mmol/L L 98-108 12/20/2015 12:44pm 12/20/2015 2:11pm Carbon Dioxide Level 24 mmol/L 22-29 12/20/2015 12:44pm 12/20/2015 2: 11pm Anion Gap 17.8 MEQ/L H 3-15 12/20/2015 12:44pm 12/20/2015 2:11pm Blood Urea Nitrogen 10 mg/dL 7-18 12/20/2015 12:44pm 12/20/2015 2:11pm Creatinine 0.46 mg/dL L 0.6-1.2 12/20/2015 12:44pm 12/20/2015 2:11pm BUN/Creatinine Ratio 22 H 10-20 12/20/2015 12:44pm 12/20/2015 2:11pm Estimat Glomerular Filtration Rate 159.8 12/20/2015 12:44pm 2015 2:11pm Estimated GFR (Non- 132.1 12/20/2015 12:44pm 2015 2:11pm Glucose Level 134 mg/dL H 70-110 12/20/2015 12:44pm 12/20/2015 2:11pm Calculated Osmolality 252 mosm/L L 280-300 12/20/2015 12:44pm 2015 2:11pm Calcium Level 10.1 mg/dL 8.8-10.8 12/20/2015 12:44pm 12/20/2015 2:11pm Calcium/Ionized Calcium Ratio 4.3 mg/dL 3.8-4.6 12/20/2015 12:44pm 05/2015 2:11pm Total Bilirubin 1.5 mg/dL # H 0.1-1.0 12/20/2015 12:44pm 12/20/2015 2: 11pm Alkaline Phosphatase 121 U/L 38-126 12/20/2015 12:44pm 12/20/2015 2: 11pm Aspartate Amino Transf (AST/SGOT) 31 U/L 15-37 12/20/2015 12:44pm 12/19 2:11pm Alanine Aminotransferase (ALT/SGPT) 23 U/L L 30-65 12/20/2015 12:44pm 2:11pm Total Protein 7.7 g/dL 6.4-8.5 12/20/2015 12:44pm 12/20/2015 2:11pm Albumin 4.5 g/dL 3.4-5.0 12/20/2015 12:44pm 12/20/2015 2:11pm Albumin/Globulin Ratio 1.406 1.1-1.8 12/20/2015 12:44pm 12/20/2015 2: 11pm Lipase 271 U/L 23-300 12/20/2015 12:44pm 12/20/2015 2:11pm Procedures No known history of procedures. Encounters Encounter Location Arrival/Admit Date Discharge/Depart Date Attending Provider Departed Emergency Room [facility] 12/20/15 11:45am 12/20/15 7:19pm FORREST CASTILLO MD Recent Diagnosis
--- NOTE | 2016-08-22 17:20 | NUR ---
DR LAMBERT IN
--- OUTSIDE RECORDS SUMMARY | 2016-08-22 17:27 | XMS REPORT | Continuity of Care Document ---
Author Author [facility] Address Unknown Phone Unavailable Allergies Active [...] Antibiotics) 491 Unknown RASH 09/07/2005 Yes iodine [id number] Drug Allergy Unknown N/A 08/02/2016 Yes latex [id number] Drug Allergy Unknown N/A 08/02/2016 Yes Penicillins [id number] Drug Allergy Unknown N/A 08/02/2016 Yes Sulfa (Sulfonamide Antibiotics) [id number] Drug Allergy Unknown N/A 08/02/2016 Medications Problems [...] MD Ot I25.10 ATHSCL HEART DISEASE OF [place] CORONARY 10/17/2015 PENNY FISCHER MD Ot R07.2 [...] MD, Ot I25.10 ATHSCL HEART DISEASE OF [place] CORONARY 10/26/2015 PENNY FISCHER MD Ot R07.2 PRECORDIAL PAIN 10/26/2015 PENNY FISCHER MD Ot R07.89 OTHER CHEST PAIN 10/26/2015 PENNY FISCHER MD, Ot Z95.5 PRESENCE OF CORONARY ANGIOPLASTY IMPLANT 10/26/2015 PENNY FISCHER MD Ot R07.89 OTHER CHEST PAIN 10/27/2015 VIRAJ YADAV MD, Ot E03.4 ATROPHY OF THYROID (ACQUIRED) 10/27/2015 VIRAJ YADVA MD, Ot E78.0 PURE HYPERCHOLESTEROLEMIA 10/27/2015 VIRAJ [...] MD, Ot E78.0 PURE HYPERCHOLESTEROLEMIA 10/29/2015 VIRAJ YAADV MD, Ot G72.0 DRUG-INDUCED MYOPATHY 10/29/2015 VIRAJ YADAV MD, Ot K71.2 TOXIC LIVER DISEASE WITH ACUTE HEPATITIS 10/29/2015 VIRAJ YADAV MD, Ot M81.0 AGE-RELATED OSTEOPOROSIS W/O CURRENT PAT 10/29/2015 VIRAJ YADVA MD, Ot R79.89 OTHER SPECIFIED ABNORMAL FINDINGS [...] MILES E78.5 HYPERLIPIDEMIA, UNSPECIFIED LEONEL MILES 02/26/2016 LEONEL MILES E87.6 HYPOKALEMIA LEON[place] MILES 02/26/2016 LEONEL MILES I10 ESSENTIAL (PRIMARY) HYPERTENSION LEONEL MILES 02/26/2016 LEONEL MILES S I25.10 ATHEROSCLEROTIC HEART DISEASE OF [place] CORONARY ARTERY WITHOUT ANGINA PECTORIS LEONEL MILES 02/26/2016 LEONEL MILES I25.2 OLD MYOCARDIAL INFARCTION LEONEL MILES 02/26/2016 LEONEL MILES I48.91 UNSPECIFIED ATRIAL FIBRILLATION [place] MIL[place] 02/26/2016 LEONEL MILES M06.9 RHEUMATOID ARTHRITIS, UNSPECIFIED LEONEL MILES 02/26/2016 LEONEL MILES P R07.89 OTHER CHEST PAIN LEONEL MILES 02/26/2016 LEONEL MILES S Z95.5 PRESENCE OF CORONARY ANGIOPLASTY IMPLANT AND GRAFT LEONEL MILES 02/26/2016 LEONEL MILES R06.9 UNSPECIFIED ABNORMALITIES OF BREATHING LEONEL [...] BULLARD MD Ot Y92.[address] US[address]ACE 08/02/2016 JEAN MARIE BULLARD MD Ot Y93.89 ACTIVITY, OTHER SPECIFIED 08/02/2016 JEAN MARIE BULLARD MD Ot Z91.81 HISTORY OF FALLING 08/04/2016 JEAN MARIE BULLARD MD Ot S70.01XA CONTUSION OF RIGHT HIP, INITIAL ENCOUNTE 08/04/2016 JEAN MARIE BULLARD MD Ot W05.0XXA FALL FROM NON-MOVING WHEELCHAIR, INITIAL 08/04/2016 JEAN MARIE BULLARD MD Ot Y92.[address] USP PLACE 08/04/2016 JEAN MARIE BULLARD MD Ot Y93.89 ACTIVITY, OTHER SPECIFIED 08/04/2016 JEAN MARIE BULLARD MD Ot Z91.81 HISTORY OF FALLING 08/07/2016 JEAN MARIE BULLARD MD Ot M25.551 PAIN IN RIGHT HIP 08/07/2016 JEAN MARIE BULLARD MD Ot W05.0XXA FALL FROM NON-MOVING WHEELCHAIR, INITIAL 08/07/2016 JEAN MARIE BULLARD MD Ot Y92.[address] USP PL[address] Procedures Code Description [place] [address] OFFICE/OUTPATIENT VISIT NEW 11/11/201556363 DRAIN/INJ JOINT/BURSA W/O US 11/23/2015 48617 OFFICE/OUTPATIENT VISIT EST 11/23/2015 J1030 Methylprednisolone 40 MG inj 11/23/2015 J3490 Drugs unclassified injection 11/23/2015 71827 No Charge Visit 03/21/2016 DRAIN/INJ JOINT/BURSA W/O [...] Status Pt. Type Provider Facility Loc./Unit Complaint [id number] 08/02/2016 07:45:00 2016 09:44:00 DIS Emergency JUAN MIGUEL FLORES, [facility] ED [id number] 12/20/2015 11:45:00 2015 19:19:00 DIS Emergency ANNA FLORES, [facility] ED [id number] 10/17/2015 08:37:00 2015 11:31:00 DIS Emergency AALIYAH FLORES, [facility] ED [id number] 08/02/2016 07:35:00 ACT Outpatient JUAN MIGUEL FLORES, [facility] EMS [id number] 05/18/2016 10:44:00 ACT Outpatient VICENTA FLORES , [facility] RAD BLADDER TUMOR R SIDE [id number] 01/05/2016 09:22:00 ACT Outpatient VICENTA FLORES , [facility] LAB [id number] 10/28/2015 09:43:00 ACT Outpatient VICENTA FLORES , [facility] RAD [id number] 10/27/2015 16:16:00 ACT Outpatient VICENTA FLORES , [facility] LAB [id number] 10/17/2015 09:07:00 ACT Outpatient AALIYAH FLORES, [facility] EMS [id number] 10/14/2015 13:33:00 ACT Outpatient VICENTA FLORES , [facility] RT [id number] 10/07/2015 15:38:00 ACT Outpatient VICENTA FLORES , [facility] RAD
--- NOTE | 2016-08-22 17:43 | ERPDOC ---
Departure Impression Impression HPI - Psychosocial General Chief Complaint: Psychiatric Problems Stated Complaint: EVALUATIONS Time Seen by MD: 17:14 Source: patient (Patient presents to the ER for [facility] Evaluation. NSG home reports the patient has been paranoid, suicidal and not eating. Patient is alert and oriented, denies suicidal ideation, and has no complaints on examination. ) Exam Limitations: no limitations HPI - Psychosocial Occurred At: home Onset: Changing over time Duration: other Severity: mild Associated Symptoms: other, suicidal ideation Hx of Similar Symptoms: No Allergies: Coded Allergies: Penicillins (Verified Allergy, Unknown, 08/22/16) Sulfa (Sulfonamide Antibiotics) (Verified Allergy, Unknown, 08/22/16) iodine (Verified Allergy, Unknown, 08/22/16) latex (Verified Allergy, Unknown, 08/22/16) Past History Past Medical History Metabolic: hypertension Surgical History General: appendix, gallbladder, other Social History Smoking Status: Unknown if ever smoked Does patient use chewing tobac: No Second Hand Exposure: No Substance Use Type: does not use Alcohol Intake: none Housing: residential Service: No Occupational Hazard: No Record Review Pertinent history updated: Yes Review of Systems Constitutional Constitutional: DENIES: chills, fever Eyes Lids/Accessories: DENIES: erythema, swelling ENMT Ears: DENIES: erythema, pain Balance: DENIES: ataxia, vertigo Sinuses: DENIES: congestion, rhinorrhea Mouth/Throat: DENIES: sore throat Cardiovascular Cardiac: DENIES: chest pain, dyspnea on exertion, orthopnea Rhythm/Rate: DENIES: tachycardia Pulmonary Respiratory: DENIES: cough, dyspnea, sputum GI Upper Abdomen: DENIES: nausea, pain, vomiting Lower Abdomen: DENIES: constipation, diarrhea, pain General: DENIES: dysuria Musculoskeletal General: DENIES: cramps, pain, weakness Integumentary Skin: DENIES: color change, itching, rash Neurological General: DENIES: ataxia, change in strength, headache, numbness, poor coordination, seizures, syncope, vertigo, weakness Psychiatric Psychiatric: DENIES: anxiety, depression, nervousness Hematologic/Lymphatic Hematologic/Lymphatic: DENIES: anemia Allergic/Immunological Allergic/Immunoligical: DENIES: sneezing All other Systems All Other Systems: Reviewed and Negative Physical Exam General General Nourishment: well nourished, well developed, appears stated age, adult General Body Habitus: well groomed Vitals and Pain Weight: Kilograms: Height (feet): Height (inches): Triage Pain Scale: RN VS reviewed by Provider: Yes Eyes (brief) Eyes Brief: found: EOMI, PERRL ENMT (brief) ENMT Brief: FOUND: TM clear, TM good light reflex, mucosa moist, NOT FOUND: pharnyx erythema Neck (brief) Neck: FOUND: trachea midline, NOT FOUND: adenopathy, nuchal rigidity, tenderness, tracheal deviation Respiratory (brief) Respiratory: FOUND: clear all goldstein, equal bilaterally Cardiovascular (brief) Cardiac: FOUND: regular rate, regular rhythm Capillary Refill: <2 sec Pulses: all distal extremities, equal, strong Abdomen (brief) Abdominal Brief: FOUND: bowel normo active x4, soft, NOT FOUND: distended, tender Lymphatic (brief) Lymphatic Brief: FOUND: lymphedema (Mild, Lower extremities), NOT FOUND: adenopathy Musculoskeletal (brief) Musculoskeletal Brief: NOT FOUND: spasm, tenderness Integumentary (brief) Integumentary Brief: FOUND: pink, warm Neurologic (brief) Neurological Brief: FOUND: CN w/o gross def to obs, gait w/o gross def to obs, motor-no gross deficits, sensory-no gross deficits, NOT FOUND: ataxia Psychiatric (brief) Psychiatric Brief: FOUND: alert, attentive, normal affect, oriented Differential Diagnoses Considering: Anxiety, Bipolar, Delirium, Dementia, Hallucinations, Homicidal Ideation, Hypoglycemia, Alcohol Intoxication, Other Intoxication, Acute Psychosis, Suicidal Attempt, Suicidal Gesture, Suicidal Ideation, Other Progress Progress Progress Case Discussed with Dr. Craig at 18:[address] Craig will assume care and will make final disposition MARY ANNE LAMBERT DO Aug 22, 2016 17:43
[2016-08-22 17:58] LABS: BASOPHILS % (AUTO) 0.2 % (0-2); EOSINOPHILS # (AUTO) 0.1 T/MM3 (0-0.5); EOSINOPHILS % (AUTO) 1.6 % (0-4); HCT - HEMATOCRIT 38.8 % (36-46); HGB - HEMOGLOBIN 13.2 GM/DL (12-16); IMMATURE GRANULOCYTE # (AUTO) 0.01 T/MM3 (0.00-0.03); IMMATURE GRANULOCYTE % (AUTO) 0.1 % (0.0-0.5); LYMPHOCYTES # (AUTO) 2.2 T/MM3 (1-4.8); LYMPHOCYTES % (AUTO) 26.1 % (23-45); MEAN CORPUSCULAR HGB 30.3 UUG (26-34); MEAN PLATELET VOLUME 10.7 UM3 (9.4-12.4); MONOCYTES # (AUTO) 0.5 T/MM3 (0-0.8); MONOCYTES % (AUTO) 5.8 % (0-9.0); NEUTROPHILS #(AUTO)-ABSOLUTE 5.5 T/MM3 (1.8-7.7); NEUTROPHILS % (AUTO) 66.2 % (33-66); RED BLOOD COUNT 4.36 M/MM3 (4.00-5.20); WBC - WHITE BLOOD COUNT 8.3 T/MM3 (4.5-11.0)
[2016-08-22 17:59] LABS: BLOOD, URINE NEGATIVE (NEGATIVE); COLOR,URINE YELLOW (YELLOW); LEUKOCYTE ESTERASE ,URINE NEGATIVE (NEGATIVE); NITRITE,URINE NEGATIVE (NEGATIVE); UROBILINOGEN,URINE 0.2 EU/DL (NORMAL)
[2016-08-22 18:08] LABS: ALBUMIN 4.2 G/DL (3.5-5.0); ALBUMIN/GLOBULIN RATIO 1.3 RATIO (1.1-2.2); ALKALINE PHOSPHATASE 146 U/L (38-126); ALT (SGPT) 28 U/L (9-52); ANION GAP 17 MEQ/L (5-15); AST (SGOT) 36 U/L (14-36); BUN/CREATININE RATIO 16 RATIO (6-26); CHLORIDE 100 MEQ/L (98-107); CO2 - CARBON DIOXIDE 25 MEQ/L (22-30); CREATININE 0.7 MG/DL (0.7-1.2); GLOMERULAR FILTRATION RATE 81; GLUCOSE 95 MG/DL (65-110); POTASSIUM 3.7 MEQ/L (3.6-5); SODIUM 142 MEQ/L (134-144); TOTAL PROTEIN 7.5 G/DL (6.3-8.2)
--- NOTE | 2016-08-22 18:10 | NUR ---
REPORT TO LORNA SÁNCHEZ
[2016-08-22 18:14] LABS: AMPHETAMINE SCREEN,URINE NEGATIVE; BARBITURATE SCREEN,URINE NEGATIVE; BENZODIAZEPINES SCREEN,URINE NEGATIVE; CANNABINOID SCREEN,URINE NEGATIVE; COCAINE SCREEN,URINE NEGATIVE; METHADONE SCREEN, URINE NEGATIVE; METHAMPHETAMINE SCREEN, URINE NEGATIVE; OPIATE SCREEN,URINE POSITIVE; PHENCYCLIDINE SCREEN,URINE NEGATIVE; TRICYCLIC ANTIDEPRESSANT,URINE NEGATIVE
[2016-08-22] MEDS ORDERED: ACET1TAB12 PO (18:23)
[2016-08-22] MEDS ORDERED: ONDA4TAB4 PO (18:23)
[2016-08-22] MEDS ORDERED: ATOR40TA64 PO (18:23)
[2016-08-22] MEDS ORDERED: HYDR25TA PO (18:23)
[2016-08-22] MEDS ORDERED: ASPI325T PO (18:23)
[2016-08-22] MEDS ORDERED: CALC1TAB PO (18:23)
[2016-08-22] MEDS ORDERED: LOPE2CAP PO (18:23)
[2016-08-22] MEDS ORDERED: SIME80TA12 PO (18:23)
[2016-08-22] MEDS ORDERED: POTASSIUM CL PO (18:23)
[2016-08-22] MEDS ORDERED: DILT240C11 PO (18:23)
--- NOTE | 2016-08-22 18:33 | NUR ---
FOOD PATIENT GIVEN SANDWICH, APPLE SAUCE, AND MILK.
[2016-08-22 18:39] LABS: THYROID STIM HORMONE-TSH 1.29 MIU/L (0.47-4.68)
--- NOTE | 2016-08-22 19:13 | NUR ---
PT STATUS PT WILL NOT STAY IN BED, IS GIVEN NON SLIP SOCKS AND ALLOWED TO SIT IN WHEELCHAIR AT THE NURSES STATION AND WILL REMAIN WITH RN UNTIL HOUSE. MALWARE ANALYST OR AIDE CAN COME AND ASSIST.
--- NOTE | 2016-08-22 19:37 | NUR ---
REPORT SPOKE TO VALDO SÁNCHEZ AND REPORT GIVEN.
--- NOTE | 2016-08-22 19:45 | NUR ---
DEPART/ADMIT PT IS TAKEN BY MACHINE BUNCH MAKER TO GENERATIONS PER PERSONAL WHEELCHAIR. PT HAS 2 BAGS OF CLOTHING WITH HER. PT SHOWS NO SIGNS OF DISTRESS AT THIS TIME, IS CALM AND COOPERATIVE.
--- NOTE | 2016-08-22 20:05 | NUR ---
Admission 76yr old female admitted to 187 from ER, previously [facility] and Rehab. Patient arrived via accompanied by Blanching Machine Operator. Patient transfers SBA Stand and Pivot, Full weight bearing. Patient is alert and oriented to person, place, and day. Confused at times. Able to be reoriented at this time. Patient has bright and happy affect, Visiting appropriately with staff and other patients. Hygiene appropriate, Skin intact, Small bruise noted from lab draw prior to arrival. Cell Phone in nurse gravity prospecting observer, no other valuables noted. Patient's admission statement, "i don't know why i am here, but i am glad they brought me." Per Facility patient was had change in cognition and delusional thoughts. Patient oriented to unit.
[2016-08-22 20:10] VITALS: BP 126/84; PULSE 79; RESP 16; TEMP 98.4; O2SAT 98
--- OUTSIDE RECORDS SUMMARY | 2016-08-22 21:11 | XMS REPORT | Continuity of Care Document ---
Author Author [facility] Address Unknown Phone Unavailable Allergies Active Description [...] Antibiotics) 491 Unknown RASH 09/07/2005 Yes iodine [id number] Drug Allergy Unknown N/A 08/02/2016 Yes latex [id number] Drug Allergy Unknown N/A 08/02/2016 Yes Penicillins [id number] Drug Allergy Unknown N/A 08/02/2016 Yes Sulfa (Sulfonamide Antibiotics) [id number] Drug Allergy Unknown N/A 08/02/2016 Medications Problems [...] MD Ot I25.10 ATHSCL HEART DISEASE OF [place] CORONARY 10/17/2015 PENNY FISCHER MD Ot R07.2 [...] MD, Ot I25.10 ATHSCL HEART DISEASE OF [place] CORONARY 10/26/2015 PENNY FISCHER MD Ot R07.2 [...] M81.0 AGE-RELATED OSTEOPOROSIS W/O CURRENT PAT 10/29/2015 VIRJA YADAV MD, Ot R79.89 OTHER SPECIFIED ABNORMAL [...] MILES S I25.10 ATHEROSCLEROTIC HEART DISEASE OF [place] CORONARY ARTERY WITHOUT ANGINA PECTORIS LEONEL MILES 02/26/2016 LEONEL MILES I25.2 OLD MYOCARDIAL INFARCTION LEONEL MILES 02/26/2016 LEONEL MILES I48.91 UNSPECIFIED ATRIAL FIBRILLATION LEONEL MIELS 02/26/2016 LEONEL MILES M06.9 RHEUMATOID ARTHRITIS, UNSPECIFIED [...] BULLARD MD Ot Y92.[address] IN ALF PLACE 08/02/2016 JEAN MARIE BULLARD MD Ot Y93.89 ACTIVITY, OTHER SPECIFIED 08/02/2016 JEAN MARIE BULLARD MD Ot Z91.81 HISTORY OF FALLING 08/04/2016 JEAN MARIE BULLARD MD Ot S70.01XA CONTUSION OF RIGHT HIP, INITIAL ENCOUNTE 08/04/2016 JEAN MARIE BULLARD MD Ot W05.0XXA FALL FROM NON-MOVING WHEELCHAIR, INITIAL 08/04/2016 JEAN MARIE BULLARD MD Ot Y92.[address] ALF PLACE 08/04/2016 JEAN MARIE BULLARD MD Ot Y93.89 ACTIVITY, OTHER SPECIFIED 08/04/2016 JEAN MARIE BULLARD MD Ot Z91.81 HISTORY OF FALLING 08/07/2016 JEAN MARIE BULLARD MD Ot M25.551 PAIN IN RIGHT HIP 08/07/2016 JEAN MARIE BULLARD MD Ot W05.0XXA FALL FROM NON-MOVING WHEELCHAIR, INITIAL 08/07/2016 JEAN MARIE BULLARD MD Ot Y92.[address] IN ALF PLACE Procedures Code [place] [address] OFFICE/OUTPATIENT VISIT NEW 11/11/201525935 DRAIN/INJ JOINT/BURSA W/O US 11/23/2015 55820 OFFICE/OUTPATIENT VISIT EST 11/23/2015 J1030 Methylprednisolone 40 MG inj 11/23/2015 J3490 Drugs unclassified injection 11/23/2015 48324 No Charge Visit 03/21/2016 DRAIN/INJ JOINT/BURSA W/O [...] Status Pt. Type Provider Facility Loc./Unit Complaint [id number] 08/02/2016 07:45:00 2016 09:44:00 DIS Emergency JUAN MIGUEL FLORES, [facility] ED [id number] 12/20/2015 11:45:00 2015 19:19:00 DIS Emergency ANNA FLORES, [facility] ED [id number] 10/17/2015 08:37:00 2015 11:31:00 DIS Emergency AALIYAH FLORES, [facility] ED [id number] 08/02/2016 07:35:00 ACT Outpatient JUAN MIGUEL FLORES, [facility] EMS [id number] 05/18/2016 10:44:00 ACT Outpatient VICENTA FLORES , [facility] RAD BLADDER TUMOR R SIDE [id number] 01/05/2016 09:22:00 ACT Outpatient VICENTA FLORES , [facility] LAB [id number] 10/28/2015 09:43:00 ACT Outpatient VICENTA FLORES , [facility] RAD [id number] 10/27/2015 16:16:00 ACT Outpatient VICENTA FLORES , [facility] LAB [id number] 10/17/2015 09:07:00 ACT Outpatient AALIYAH FLORES, [facility] EMS [id number] 10/14/2015 13:33:00 ACT Outpatient VICENTA FLORES , [facility] RT [id number] 10/07/2015 15:38:00 ACT Outpatient VICENTA FLORES , [facility] RAD
[2016-08-22] MEDS ORDERED: LORAZEPAM 2 MG/ML INJECTION IM PRN (21:15)
[2016-08-22] MEDS ORDERED: HALOPERIDOL 0.5 MG TABLET PO PRN (21:15)
[2016-08-22] MEDS ORDERED: PRN ORDERS MC (21:15)
[2016-08-22] MEDS ORDERED: HALOPERIDOL 5 MG/ML INJECTION IM PRN (21:15)
[2016-08-22] MEDS ORDERED: LORAZEPAM 0.5 MG TABLET PO PRN (21:15)
[2016-08-22] MEDS ORDERED: HYDROCHLOROTHIAZIDE 25 MG TABLET PO SCH (21:15)
[2016-08-22] MEDS: ATORVASTATIN 40 MG TABLET PO SCH (21:45)
[2016-08-22] MEDS: ACETAMINOPHEN 325 MG TABLET PO PRN (22:16)
[2016-08-22 22:21] VITALS: BP 143/84; PULSE 90; RESP 16; TEMP 98.2; O2SAT 96
[2016-08-23 00:06] VITALS: PULSE 83
[2016-08-23 00:34] VITALS: Ht 167.6 cm; Wt 75.8 kg
--- NOTE | 2016-08-23 01:00 | NUR ---
Chart Check 24 hour chart check completed
[2016-08-23] MEDS: HYDROCODONE/APAP 5 mg/325 mg TABLET PO PRN ×3 (01:48→18:35)
--- NOTE | 2016-08-23 02:15 | NUR ---
Sleep Patient fell asleep at 0215. bed alarm on, call light in reach, rails upx2
--- NOTE | 2016-08-23 06:18 | NUR ---
Summary Patient arrived on unit pleasant and happy visiting well with staff and other patients. Patient was cooperative with assessment and oriented to unit. After sitting in the dayroom for a short period visiting with staff; patient then transitioned to bed. Patient is up with SBA with wheelchair. Setup with hygiene cares. Patient complains of chronic Rt shoulder pain, patient received prn Tylenol 650mg po at 2216, with no relief telehospitalist was notified. Order for [place] 5 obtained, Patient received 1 tab at 0148. After prn norco patient's pain became "tolerable" and patient was able to rest w/o further complaints. Patient uses call light appropriately at times, can be forgetful. When interacting with patient, patient appears oriented though she has periods of forgetfulness and is good at covering deficits. Patient looks around room and to others for cues on place and time. When asking patient history, patient spoke of certain events as happening recently though had happened years ago. Other times patient report matched history. Addendum: 08/23/16 at 0641 by GARCÍA JERRY RN No delusional comments observed. Denies SI. No agitation noted. Patient has not isolated this evening prior to going to bed.
--- NOTE | 2016-08-23 07:56 | NUR ---
SMOKING HISTORY Pt denies ever smoking.
[2016-08-23 08:13] LABS: HEMOGLOBIN A1C 5.1 % (6.1-7.9)
--- NOTE | 2016-08-23 08:22 | NUR ---
Status Pt up and out of bed at 0745 this morning. Upon waking she was pleasant and cooperative with staff.
[2016-08-23 08:27] VITALS: BP 128/87; PULSE 87; RESP 20; TEMP 97.2; O2SAT 97
[2016-08-23] MEDS: POTASSIUM CHLORIDE 20 MEQ/15 ML PO SCH ×2 (08:37→17:24)
[2016-08-23] MEDS: SIMETHICONE 80 MG CHEWABLE TABLET PO SCH ×3 (08:39→20:18)
[2016-08-23] MEDS: DILTIAZEM CD 240mg CAP (QD) PO SCH (08:40)
[2016-08-23] MEDS: HYDROCHLOROTHIAZIDE 25 MG TABLET PO SCH (08:40)
[2016-08-23] MEDS: CALCIUM 600mg + VIT D 400 TABLET PO SCH ×2 (08:47→20:18)
[2016-08-23] MEDS: ASPIRIN 325 MG TABLET PO SCH (08:47)
[2016-08-23 08:51] LABS: PREALBUMIN 20.2 MG/DL (17.6-36.0)
[2016-08-23 08:57] VITALS: PULSE 87
--- NOTE | 2016-08-23 09:34 | NUR ---
SLUMS Pt scored a 20 on her slums exam.
--- NOTE | 2016-08-23 14:15 | NUR ---
JANETH FOWLER SPOKE WITH JAMIE MILITARY PAY CLERK FROM [facility]. JANETH PROVIDED CONTACT INFORMATION AND EXPLAINED ROLE. JAMIE STATES THAT FACILITY WILL TRANSPORT PT AT TIME OF D/C FROM [facility]. JAMIE STATES THAT PV COMES TO FACILITY FOR MENTAL HEALTH FOLLOW UP. JANETH SPOKE WITH PT DAUGHTER YURI. CM EXPLAINED ROLE AND PROVIDED CONTACT INFORMATION. YURI AWARE TO CONTACT CM IF NEEDS ARISE.
--- NOTE | 2016-08-23 14:50 | HPPDOC ---
JENIFFERANTHONY D HEAT ENGINEERING TEACHER 08/23/16 1246: HPI - Adult Date DATE: 08/23/16 TIME: 12:40 General Chief Complaint: Delusional thinking History of Present Illness Rossi Brush is a 76 y/o lady admitted to [facility] on 08/22/16 for delusional thinking, agitation. At [facility], she has been exhibiting bizarre behaviors for the last few weeks: she overturned a wheelchair, unplugged a call light from the wall and stated that the "electrodes did it". She's been paranoid at night and has been placing a table and trash can at her door to prevent people from coming into her room. She has been isolating herself ; she has not showered in over 2 weeks. She was eval. in [place] [facility] [place], and was cleared medically for admission. PMH includes CAD, A-fib (on ASA and diltiazem), HTN, Hyperlipidemia, GERD, constipation, dementia. She was seen in her room on the floor, pleasant but a poor historian. She was unaware that she had any heart disease, and did not know sx or fam hx. ROS was negative. Past Medical History Past Medical History Patient's Medical History: (1) Dementia with behavioral disturbance (2) Atrial fibrillation (3) CAD (coronary artery disease) (4) HTN (hypertension) (5) Hyperlipidemia (6) Right shoulder pain (7) GERD (gastroesophageal reflux disease) (8) Constipation (9) Overweight (BMI 25.0-29.9) Surgical History Patient's Surgical History: T&A Coronary stent x2 (2005, 2013) Appendectomy cholecystectomy hysterectomy neck sx. Current Medications Home Meds Reported Medications Ondansetron HCl (Zofran) 4 Mg Tablet, 4 MG PO Q6H Y for PRN ORDERS, TAB 08/22/16 Acetaminophen with Codeine (Tylenol with Codeine #3 Tablet) 300-30 Tablet, 1-2 TAB PO Q4H Y for PAIN, TAB Take 1 tablet, by mouth, every 4 hours as needed for Pain 08/22/16 Loperamide HCl (Loperamide) 2 Mg Capsule, 2 MG PO PRN Y for DIARRHEA, CAP 08/22/16 Simethicone (Simethicone) 80 Mg Tab.chew, 80 MG PO TID, TAB . 08/22/16 [potassium cl powder] No Conflict Check, 20 MEQ PO BID 08/22/16 Calcium Carbonate/Vitamin D3 (Caltrate 600 + D Tablet) 1 Each Tablet, 1 TAB PO BID 08/22/16 Hydrochlorothiazide (Hydrochlorothiazide) 25 Mg Tablet, 25 MG PO QD, TAB 08/22/16 Diltiazem HCl (Diltiazem ER) 240 Mg Cap.er.deg, 240 MG PO DAILY, TAB 08/22/16 Atorvastatin Calcium (Atorvastatin Calcium) 40 Mg Tablet, 1 TAB PO HS, TAB 08/22/16 Aspirin (Aspirin) 325 Mg Tablet, 1 TAB PO DAILY 08/22/16 Allergies: Coded Allergies: Penicillins (Verified Allergy, Unknown, 08/22/16) Sulfa (Sulfonamide Antibiotics) (Verified Allergy, Unknown, 08/22/16) iodine (Verified Allergy, Unknown, 08/22/16) latex (Verified Allergy, Unknown, 08/22/16) Family History Family History: Father had RA - per accompanying notes patient unable to contribute, other than stating her grandmother at age 87 Social History Smoking Status: Never smoker Does patient use chewing tobac: No Second Hand Exposure: No Substance Use Type: does not use Alcohol Intake: none Housing: skilled nursing Service: No Occupational Hazard: No Advance Directives: Yes DNR, Yes DPOA for Healthcare Only Review of Systems Unable to Obtain ROS Due to: dementia Comments Unreliable historian. She denied any specific ROS, but ruminated on the fact that she can't figure out why she's here, and became a little upset because her pain medications were late last night for her right shoulder pain. Constitutional: DENIES: dizziness, fever, weakness Eyes Vision: DENIES: vision changes ENMT Sinuses: NOT FOUND: rhinorrhea Mouth/Throat: DENIES: sore throat Cardiovascular DENIES: chest pain Vascular: DENIES: pedal edema Pulmonary Respiratory: DENIES: cough GI Upper Abdomen: DENIES: vomiting Lower Abdomen: DENIES: diarrhea General: DENIES: dysuria Musculoskeletal General: joint pain (right shoulder - chronic) Integumentary Skin: DENIES: rash Neurological General: memory disturbances Psychiatric Psychiatric: memory impairment, see HPI Hematologic/Lymphatic DENIES: anemia Allergic/Immunological DENIES: frequent infections All Other Systems All Other Systems: Reviewed (remainder of 10-point ROS Neg.) Physical Exam General General Nourishment: well nourished, well developed General Body Habitus: well groomed Vital Signs Vital Signs Date Time Temp Pulse Resp B/P Pulse Ox O2 Delivery O2 Flow Rate FiO2 08/23/16 08:57 87 08/23/16 08:27 97.2 20 128/87 97 Room Air Height (Feet): 5 Height (Inches): 6.00 Eyes Brief: FOUND: PERRL, NOT FOUND: scleral icterus ENMT Brief: FOUND: mucosa moist, NOT FOUND: pharnyx erythema Neck Brief: NOT FOUND: adenopathy, nuchal rigidity Respiratory Auscultation: FOUND: normal, NOT FOUND: rales, rhonchi, wheezes Cardiovascular Auscultation: FOUND: S1, S2, regular Peripheral Pulses: 2+: Dorasalis Pedis (L), Dorsalis Pedis (R), Posterior Tibial (L), Posterior Tibial (R), Radial (L), Radial (R) Edema: 0: Anasarca, Arm (L), Arm (R), Face, Leg (L), Leg (R) Abdomen Inspection: NOT FOUND: distention Palpation: FOUND: soft, NOT FOUND: involuntary guarding, rebound, tender, voluntary guarding Auscultation: FOUND: normo active Lymphatic (brief) Lymphatic Brief: NOT FOUND: adenopathy Musculoskeletal (brief) Musculoskeletal Brief: FOUND: extremities move equally, NOT FOUND: deformity Integumentary (brief) Integumentary Brief: FOUND: dry, pink, warm Integumentary General: FOUND: dry, warm Color: FOUND: pink Neurologic (brief) Neurological Brief: FOUND: cranial 2-12 intact (grossly) Neurologic RN Documented GCS Eye Opening: (4)Spontaneous Verbal: (4)Confused Motor: (6)Obeys Commands Total: Psychiatric (brief) FOUND: alert, oriented Laboratory Laboratory Tests Test 08/22/16 17:45 08/23/16 07:44 White Blood Count 8.3T/MM3 Red Blood Count 4.36M/MM3 Hemoglobin 13.2GM/DL Hematocrit 38.8% Mean Corpuscular Volume 89.0UM3 Mean Corpuscular Hemoglobin 30.3UUG Mean Corpuscular Hemoglobin Concent 34.0GM/DL RDW Standard Deviation 41.6FL Platelet Count 239T/MM3 Mean Platelet Volume 10.7UM3 Immature Granulocyte % (Auto) 0.1% Neutrophils (%) (Auto) 66.2% Lymphocytes (%) (Auto) 26.1% Monocytes (%) (Auto) 5.8% Eosinophils (%) (Auto) 1.6% Basophils (%) (Auto) 0.2% Absolute Immature Granulocyte (auto 0.01T/MM3 Absolute Neutrophils (auto) 5.5T/MM3 Absolute Lymphocytes (auto) 2.2T/MM3 Absolute Monocytes (auto) 0.5T/MM3 Absolute Eosinophils (auto) 0.1T/MM3 Absolute Basophils (auto) 0.0T/MM3 Urine Collection Type Cleancatch-midstream Urine Color Yellow Urine Turbidity Clear Urine pH 5.0 Urine Specific [place] <=1.005 Urine Protein Negative Urine Glucose (UA) Negative Urine Ketones Negative Urine Blood Negative Urine Nitrite Negative Urine Bilirubin Negative Urine Urobilinogen 0.2EU/DL Urine Leukocyte Esterase Negative Urinalysis Comment Microscopic not ind. Turbidity < 20 Sodium Level 142MEQ/L Potassium Level 3.7MEQ/L Chloride Level 100MEQ/L Carbon Dioxide Level 25MEQ/L Anion Gap 17MEQ/L Blood Urea Nitrogen 11.0MG/DL Creatinine 0.7MG/DL Glomerular Filtration Rate Calc 81 BUN/Creatinine Ratio 16RATIO Glucose Level 95MG/DL Calculated Osmolality 272MOSM/KG Calcium Level 10.0MG/DL Total Bilirubin 0.90MG/DL Icterus Index < 2 Aspartate Amino Transf (AST/SGOT) 36U/L Alanine Aminotransferase (ALT/SGPT) 28U/L Alkaline Phosphatase 146U/L Total Protein 7.5G/DL Albumin 4.2G/DL Globulin 3.3G/DL Albumin/Globulin Ratio 1.3RATIO Thyroid Stimulating Hormone (TSH) 1.29MIU/L Chemistry Specimen Hemolysis 34 Urine Opiates Screen PositiveNG/ML Urine Oxycodone Screen NegativeNG/ML Urine Methadone Screen NegativeNG/ML Urine Propoxyphene Screen NegativeNG/ML Urine Barbiturates Screen NegativeNG/ML Urine Tricyclic Antidepressants NegativeNG/ML Urine Phencyclidine Screen NegativeNG/ML Urine Amphetamines Screen NegativeNG/ML Urine Methamphetamines Screen NegativeNG/ML Urine Benzodiazepines Screen NegativeNG/ML Urine Cocaine Screen NegativeNG/ML Urine Cannabinoids Screen NegativeNG/ML Urine Drug Screen Confirmation Sent out Hemoglobin A1c 5.1% Prealbumin 20.2MG/DL Assessment & Plan Problems: (1) Dementia with behavioral disturbance Status: Acute (2) Atrial fibrillation (3) CAD (coronary artery disease) Status: Chronic (4) Hyperlipidemia Status: Chronic (5) HTN (hypertension) Status: Chronic (6) Constipation Status: Chronic (7) GERD (gastroesophageal reflux disease) Status: Chronic (8) Right shoulder pain Status: Chronic (9) Overweight (BMI 25.0-29.9) Status: Chronic Plan/Intensity of Service Agree with admission. Labs reviewed - stable. A-fib - Cont ASA 325 and diltiazem. Rate controlled. HTN & dyslipidemia - cont. home meds. Chronic right shoulder pain - pt reports she's "missing the rotator cuff" - [place] and Tylenol PRN. F/U on pending labs and imaging. Dementia with delusional thinking - per attending. Code Status Do Not Resuscitate Hospital Course Summary Disclaimer The hospital course summary below is not to be considered part of the above Progress Note. Hospital Course Summary 08/23/16 Agree with admission. Labs reviewed - stable. A-fib - Cont ASA 325 and diltiazem. Rate controlled. HTN & dyslipidemia - cont. home meds. Chronic right shoulder pain - pt reports she's "missing the rotator cuff" - [place] and Tylenol PRN. F/U on pending labs and imaging. Dementia with delusional thinking - per attending. BETHEL IRWIN MD 08/23/16 7715: Past Medical History Current Medications Home Meds Reported Medications Ondansetron HCl (Zofran) 4 Mg Tablet, 4 MG PO Q6H Y for PRN ORDERS, TAB 08/22/16 Acetaminophen with Codeine (Tylenol with Codeine #3 Tablet) 300-30 Tablet, 1-2 TAB PO Q4H Y for PAIN, TAB Take 1 tablet, by mouth, every 4 hours as needed for Pain 08/22/16 Loperamide HCl (Loperamide) 2 Mg Capsule, 2 MG PO PRN Y for DIARRHEA, CAP 08/22/16 Simethicone (Simethicone) 80 Mg Tab.chew, 80 MG PO TID, TAB . 08/22/16 [potassium cl powder] No Conflict Check, 20 MEQ PO BID 08/22/16 Calcium Carbonate/Vitamin D3 (Caltrate 600 + D Tablet) 1 Each Tablet, 1 TAB PO BID 08/22/16 Hydrochlorothiazide (Hydrochlorothiazide) 25 Mg Tablet, 25 MG PO QD, TAB 08/22/16 Diltiazem HCl (Diltiazem ER) 240 Mg Cap.er.deg, 240 MG PO DAILY, TAB 08/22/16 Atorvastatin Calcium (Atorvastatin Calcium) 40 Mg Tablet, 1 TAB PO HS, TAB 08/22/16 Aspirin (Aspirin) 325 Mg Tablet, 1 TAB PO DAILY 08/22/16 Allergies: Coded Allergies: Penicillins (Verified Allergy, Unknown, 08/22/16) Sulfa (Sulfonamide Antibiotics) (Verified Allergy, Unknown, 08/22/16) iodine (Verified Allergy, Unknown, 08/22/16) latex (Verified Allergy, Unknown, 08/22/16) Assessment & Plan Plan/Intensity of Service Have independently interviewed and examined pt. Chart reviewed. Case discussed with my HEAT ENGINEERING TEACHER. Care plan developed with my supervision; agree with above. Admitted to [facility] due to behavioral changes as noted above. Medically, pt denies any specific problems other than her right shoulder pain. Breathing well without SOA, cough, or congestion. Denies chest pressure pain or palpitations. Eating well. No nausea or ab pain. Lungs: clear CV: irregularly irregular AB: soft nt/nd +BS MSE: awake alert appropriate Plan: Agree with admission to [facility] for adjustment of psychoactive mediations due to behavioral changes. Provide safe, supportive environment. Continue with her chronic medications - medical status stable. Psychiatry to manage and adjust patient's psychoactive medicines. Encourage group therapy. Medically stable for [facility] floor activities. ANTHONY SWIFT APRN Aug 23, 2016 12:46 BETHEL IRWIN MD Aug 23, 2016 17:48
[2016-08-23 16:31] VITALS: BP 146/79; PULSE 101; RESP 16; TEMP 98.5; O2SAT 95
--- NOTE | 2016-08-23 17:02 | NUR ---
Summary Pt was cooperative with assessment, cares and medications. Pt was upset about her medications being changed and it was explained to her that her medications were transferred over from the facility, medications were reviewed with the patient and she felt much better. Pt stated that she was having right shoulder pain 9 so she received [place] 5/325 @ 1414 and upon reassessment she felt better. Pt eats well and is able to make her needs known. Pt is currently in the day room sitting with staff present.
--- NOTE | 2016-08-23 17:58 | NUR ---
Pt complaint with taking her dinner time medications. She ate 100% of her dinner. She asked why she was here and this keno writer / runner explained that at the nursing facility they were expressing concerns with delusions, isolation and agitation with her son. She went over to table and acted like she was calling her son (for her this was real) and told him that she is not agitated with him but "you are always going to agitate me, I am your mother." Pt wheeled back to day room and told us what she told him on the phone and laughed. She is currently watching a television show.
--- NOTE | 2016-08-23 18:35 | NUR ---
PRN Med Pt given [place] 5 one po for pain 7/10 for right shoulder pain.
--- NOTE | 2016-08-23 19:30 | NUR ---
prn update Pt states her shoulder is feeling better after taking [place] for shoulder pain, pain now 4/10.
--- NOTE | 2016-08-23 19:38 | GENHPPDOC ---
[facility] 08/23/16 Time of Service: 15:30 Start Time: 15:30 Stop Time: 16:50 >50% of this visit spent in counseling/coordination care. Chief Complaint: Agitation and delusion History of Present Illness Patient is a 76-year-old, female, transferred from [facility] for delusions, agitation and refusal of care. Patient was medically cleared in the ER and the CBC, CMP, UA and TSH were unremarkable. Her UDS was positive for Opioids due to patient's use of [place] 5/325mg PRN for left shoulder pain. Patient was seen to be alert and oriented to place and person, but she thought that the month was September instead of August. She has poor insight into the reason for the admission and reports that she does not know the reason why she is in the hospital. She is often wheelchair bound, but she is able to stand upright with stoop gait and only able to take 2 steps without assistance. Patient denies any depressive or anxiety symptoms and reports that she sleeps well at night and no change in appetite. She denies any morbid thoughts, suicide ideations, intent or plans to hurt herself or some other person. However,the facility reports that patient has been quite suspicious and delusional in the facility. There is report that patient was using objects to hinge her door to prevent imaginary people from entering her room. Patient was noted to have scored 20/30 on SLUM. Past Psych: Patient denies any past suicide attempt. Family Hx: Denies history of psychiatry disorder in her family. Social: Patient currently resides in a NH and she has high school education. 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 She has 3 children and reports that her several years ago. Patient's strength : She is able to communicate her needs. Psychosis: delusions, paranoia Dementia: memory impairment, poor executive function. Past Medical History Past Medical History Patient's Medical History: (1) Dementia with behavioral disturbance (2) Atrial fibrillation (3) CAD (coronary artery disease) (4) HTN (hypertension) (5) Hyperlipidemia (6) Right shoulder pain (7) GERD (gastroesophageal reflux disease) (8) Constipation (9) Overweight (BMI 25.0-29.9) Surgical History Patient's Surgical History: T&A Coronary stent x2 (2005, 2013) Appendectomy cholecystectomy hysterectomy neck sx. Current Medications Home Meds Reported Medications Ondansetron HCl (Zofran) 4 Mg Tablet, 4 MG PO Q6H Y for PRN ORDERS, TAB 08/22/16 Acetaminophen with Codeine (Tylenol with Codeine #3 Tablet) 300-30 Tablet, 1-2 TAB PO Q4H Y for PAIN, TAB Take 1 tablet, by mouth, every 4 hours as needed for Pain 08/22/16 Loperamide HCl (Loperamide) 2 Mg Capsule, 2 MG PO PRN Y for DIARRHEA, CAP 08/22/16 Simethicone (Simethicone) 80 Mg Tab.chew, 80 MG PO TID, TAB . 08/22/16 [potassium cl powder] No Conflict Check, 20 MEQ PO BID 08/22/16 Calcium Carbonate/Vitamin D3 (Caltrate 600 + D Tablet) 1 Each Tablet, 1 TAB PO BID 08/22/16 Hydrochlorothiazide (Hydrochlorothiazide) 25 Mg Tablet, 25 MG PO QD, TAB 08/22/16 Diltiazem HCl (Diltiazem ER) 240 Mg Cap.er.deg, 240 MG PO DAILY, TAB 08/22/16 Atorvastatin Calcium (Atorvastatin Calcium) 40 Mg Tablet, 1 TAB PO HS, TAB 08/22/16 Aspirin (Aspirin) 325 Mg Tablet, 1 TAB PO DAILY 08/22/16 Allergies: Coded Allergies: Penicillins (Verified Allergy, Unknown, 08/22/16) Sulfa (Sulfonamide Antibiotics) (Verified Allergy, Unknown, 08/22/16) iodine (Verified Allergy, Unknown, 08/22/16) latex (Verified Allergy, Unknown, 08/22/16) Family History Family History: Father had RA - per accompanying notes patient unable to contribute, other than stating her grandmother at age 87 Vaccines Social History Smoking Status: Never smoker Does patient use chewing tobac: No Second Hand Exposure: No Substance Use Type: does not use Alcohol Intake: none Housing: [facility] Service: No Occupational Hazard: No Advance Directives: Yes DNR, Yes DPOA for Healthcare Only Review of Systems Constitutional: DENIES: syncope, weakness, weight loss Eyes General: DENIES: watering Lids/Accessories: DENIES: alopecia lashes/eyebrows Vision: DENIES: blurring ENMT Ears: DENIES: foreign body Balance: ataxia Mouth/Throat: DENIES: bleeding gums, drooling ENMT Teeth: DENIES: pain Jaw: DENIES: pain Cardiovascular DENIES: murmur Vascular: DENIES: pallor of an extremity, unilateral swelling Pulmonary Respiratory: DENIES: dyspnea, hyperventilation GI Upper Abdomen: DENIES: abdominal swelling, hematemesis General: DENIES: polyuria Musculoskeletal General: pain (Shoulder) Neurological General: ataxia Psychiatric Psychiatric: memory impairment Hematologic/Lymphatic DENIES: bleeding gums Allergic/Immunological DENIES: hives Generations Exam Vitals Vital Signs Date Time Temp Pulse Resp B/P Pulse Ox O2 Delivery O2 Flow Rate FiO2 08/23/16 16:31 98.5 101 16 146/79 95 Room Air HEENT: Atraumatic and pupils equal and reactive to light CVS: S1 and S2 heard and no murmur Pulm: Clear to auscultation Musculoskeletal: Patient is wheelchair bound and has right shoulder pain. Height (Feet): 5 Height (Inches): 6.00 Mental Status Exam Muscle Strength/Tone: Weak Dressing: Casual Grooming: Good Attitude: Cooperative Motor Activity: Normal Eye Contact: Good Speech: Normal Volume: Normal Rhythm: Appropriate Rhythm Sensory: Alert Orientation: Oriented to person, Oriented to place Mood: Neutral Affect: Stable Rate of Thoughts: Appropriate Rate Thought Organization: Organized Associations: Intact Abstract Reasoning: Impaired, concrete Computation: Poor Computation Thought Content: Delusions, Paranoia Perception/Psychotic: Psychotic Attention Span/Concentration: Normal Language: Naming Impaired Fund of Knowledge: Poor fund of knowledge Memory: Poor-immediate, Poor-recent Suicidal Ideation: None Homicidal Ideation: None Insight: Poor Judgment: Poor Impulse Control: Poor Laboratory Tests Test 08/23/16 07:44 Hemoglobin A1c 5.1% Prealbumin 20.2MG/DL Triglycerides Level Pending Cholesterol Level Pending LDL Cholesterol, Calculated Pending VLDL Cholesterol Pending HDL Cholesterol Direct Pending Cholesterol/HDL Ratio Pending Vitamin B12 Level Pending Folate Pending Rapid Plasma Reagin Pending Assessment and Plan (1) Major neurocognitive disorder Assessment: with Behavioral disturbance. 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 Plan: 1. Admit to [facility]: reviewed Labs and awaiting Vit B12 and folate 2. Re start home medications (2) Right shoulder pain EMEKA CHO MD Aug 23, 2016 19:21
[2016-08-23 20:00] VITALS: BP_SYST 110; BP_SYST 156; BP_DIAS 67; BP_DIAS 90; PULSE 108; PULSE 73; RESP 18; TEMP 97.4; TEMP 99.4; O2SAT 97; O2SAT 98
--- NOTE | 2016-08-23 21:15 | NUR ---
bedtime Pt went to sleep at 21:15 with 2 bed rails up and bed alarm on. Pt slept 0.75 hours on dayshift
--- NOTE | 2016-08-23 23:00 | NUR ---
patient status Pt is alert and oriented x1-2, pt is up with 1 assist to wheelchair, pt down in the dayroom at the start of shift, with staff. Pt pleasant, smiling cooperative at start of shift, pt a little anxious about another patients behaviors. Pt reassured that staff was here and helping both her and the other patient. Pt took hs meds and did hs cares. Pt went to bed at 21:15. Pt is in bed with 2 bed rails up and bed alarm on.
[2016-08-24 02:12] LABS: LDL CHOLESTEROL,CALCULATED 53.6 (66-159); RISK FACTOR 3.3 RATIO (0-4.0); VLDL CHOLESTEROL 16.4 MG/DL (0-28)
--- NOTE | 2016-08-24 02:30 | NUR ---
patient status Pt awake, pt turned on her call light, pt request wheelchair and to go to the bathroom. Pt assisted x1 to wheelchair, pt asked if her son had called staff to get pt wheelchair, pt reoriented that is was 0230 in the morning and that her son had not called tonight. Pt cooperative with cares, but request not to have help, staff did standby for transfers and pt able to transfer from bed to wheelchair. Pt assisted back to bed, pt states the doctor told her "that she was the healthy person he has in two years". Pt then sat in her bed talking to herself about her son and how he was going to call staff.
--- NOTE | 2016-08-24 06:29 | NUR ---
shift summary Pt is alert and oriented x2, pt is up with assist x1 to the wheelchair, pt did have some auditory hallucinations around 23:30 stated that she talked with her son and that he was coming to get her wheelchair, pt does have a cell phone, but was not talking on the cell phone. Pt cooperative with assessment, vitals, and meds. Pt states the norco at supper helped her shoulder pain, pt states she has no pain this morning. Pt went to bed at 21:15 and has slept 7.25 hours so far, pt is still resting in bed, with 2 bed rails up and bed alarm on.
[2016-08-24] MEDS: CALCIUM 600mg + VIT D 400 TABLET PO SCH ×2 (10:01→21:07)
[2016-08-24] MEDS: ASPIRIN 325 MG TABLET PO SCH (10:01)
[2016-08-24] MEDS: SIMETHICONE 80 MG CHEWABLE TABLET PO SCH ×3 (10:01→21:00)
[2016-08-24] MEDS: HYDROCHLOROTHIAZIDE 25 MG TABLET PO SCH (10:02)
[2016-08-24] MEDS: POTASSIUM CHLORIDE 20 MEQ/15 ML PO SCH ×2 (10:02→17:35)
[2016-08-24] MEDS: DILTIAZEM CD 240mg CAP (QD) PO SCH (10:02)
--- NOTE | 2016-08-24 11:01 | NUR ---
TRANSFORMER MECHANIC--PSH/ADVANCE DIRECTIVE [facility] attempted to meet with pt. to gather information for psychosocial history (PSH). Pt. was in irritable mood and very guarded regarding intent of questions. She denied any symptoms identified on screening sheet and became agitated when advised about concerns that brought her to the hospital. Pt. is considered poor historian. Proposed treatment plan was not reviewed with pt. due to her level of agitation. [facility] made multiple phone calls to pt's daughter/DPOA-HC (Fátima Walden). Messages left asking daughter to call this SW back. Information for PSH gathered from information in chart. Pt. was born in [place], [place]. She has a high school diploma and reports college education with degree in [employer] programing (? not sure if that is accurate). She has been a for many years and has three children (Fátima--[place]; Nicole(son)--[place]; Kaye(son)--unknown residence). No known history of substance abuse issues and pt. denies history of mental health treatment. Pt.'s amish tiffany is source of strength for her. Pt. has signed DNR in chart. Discharge plan is for pt. to return to [facility] when stable. Addendum: 08/24/16 at 1137 by ALEXUS QURESHI Amended: Links added.
[2016-08-24 11:02] VITALS: PULSE 82
[2016-08-24 11:04] VITALS: BP 113/74; PULSE 99; RESP 18; TEMP 99; O2SAT 97
[2016-08-24] MEDS: HYDROCODONE/APAP 5 mg/325 mg TABLET PO PRN ×3 (12:39→21:07)
[2016-08-24 16:59] VITALS: BP 101/68; PULSE 79; RESP 16; TEMP 98; O2SAT 97
--- NOTE | 2016-08-24 17:54 | NUR ---
Shift Summary pt is oriented to self. pt is able to use call light but does not think that she is at any risk and ambulates without assistance. Alarms must be set. pt eats well and participates in group activities. Pt has been pleasant for most of the shift but refused to allow staff to turn on bed or chair alarms and was 1:1 for a few hours. During this time pt used a () cell phone to make numerous phone calls complaining about the "care" she was receiving. Pt finally took a nap and calmed down the bed alarm was set and there were no issues when pt woke up. pt had prn norco 5mg po once at noon and again after supper for knee pain. pt stated after lunch this had helped with the pain. pt is continent and abler to pivot transfer to and from w/c. pt takes meds whole and is compliant with tx.
[2016-08-24] MEDS: ATORVASTATIN 40 MG TABLET PO SCH (21:08)
--- NOTE | 2016-08-24 21:58 | NUR ---
SUMMARY PT ORIENTED ONLY TO SELF. PT WAS PLEASANT AND APPR WITH STAFF AND CARES. SHE TOOK HER MEDICATIONS WITHOUT DIFFICULTY, ALTHOUGH SHE REFUSED HER SIMETHICONE, STATING, "I DON'T NEED ANYTHING FOR GAS. I'VE BEEN BELCHING A LOT." SIMETHICONE HELD. NO SX OF AGITATION OR AGGRESSION. NO EXPRESSION OF PARANOIA THOUGHTS, SLEPT IN RM FOR MOST OF SHIFT. REQUESTED PRN NORCO WITH HS MEDS. CURRENTLY IN BED, WITH ALARM ON.
--- NOTE | 2016-08-24 22:03 | GENPN ---
[facility] Subjective Date DATE: 08/24/16 TIME: 21:52 Subjective/Severity of Illness Medications Current Medications Medications (Trade) Dose Ordered Sig/Cm Start Time Stop Time Status Last Admin Dose Admin Miscellaneous Medication (May use PRN orders) 1 PRN PRN 08/22/16 21:15 Haloperidol (Haldol) 0.5 mg Q6H PRN 08/22/16 21:15 Lorazepam (Ativan) 0.5 mg Q6H PRN 08/22/16 21:15 Lorazepam (Ativan) 0.5 mg Q6H PRN 08/22/16 21:15 Haloperidol Lactate (Haldol 5 Mg/ml Inj) 0.5 mg Q6H PRN 08/22/16 21:15 Aspirin (ASA) 325 mg DAILY 08/23/16 09:00 08/24/16 10:01 325 MG Atorvastatin Calcium (LIPITOR 40 mg) 40 mg HS 08/23/16 21:00 08/24/16 21:08 40 MG Calcium/Vitamin D (Caltrate + D) 1 tab BID 08/23/16 09:00 08/24/16 21:07 1 TAB Diltiazem HCl (Cardizem Cd) 240 mg DAILY 08/23/16 09:00 08/24/16 10:02 240 MG Hydrochlorothiazide (Hydrodiuril) 25 mg QD 08/22/16 21:15 08/23/16 06:25 DC Simethicone (MYLICON 80 mg) 80 mg TID 08/23/16 09:00 08/24/16 15:00 80 MG Potassium Chloride (KCl Oral Liq) 20 meq BIDWM 08/23/16 08:00 08/24/16 17:35 20 MEQ Hydrochlorothiazide (Hydrodiuril) 25 mg 09 08/23/16 09:00 08/24/16 10:02 25 MG Acetaminophen (Tylenol Regular Strength) 1-2 tabs Q5H PRN 08/22/16 22:15 08/22/16 22:16 650 MG Acetaminophen/ Hydrocodone Bitart ([place] 5/325) 1 tab Q4H PRN 08/23/16 01:45 08/24/16 21:07 1 TAB Subjective Patient has history of cognitive impairment and presented with aggression and delusions while at [facility] and . Patient seen and chart reviewed. She continues to have paranoid ideation, irritable, agitated and slams door when upset. She was seen to be tensed during the clinical interaction and perseverates that she blames the staff from [place] who brought her to the hospital. She describes her mood as "mad" and denies SI/HI. Discussed starting patient on anti-psychotic with patient's daughter and DPGUSTAVO Shine and she would like to discuss it further with her family before making a decision. Fátima was informed that patient can be given antipsychotic medication if she becomes agitated to the level of hurting herself or some other person. Time of Service: :30 Start Time: 17:30 Stop Time: 17:45 Care >50% of this visit spent in counseling/coordination care. [facility] Exam Vitals Vital Signs Date Time Temp Pulse Resp B/P Pulse Ox O2 Delivery O2 Flow Rate FiO2 08/24/16 16:59 98.0 79 16 101/68 97 Room Air Physical examination performed by the hospitalist. Height (Feet): 5 Height (Inches): 6.00 Mental Status Exam Muscle Strength/Tone: Weak Dressing: Casual Grooming: Fair Attitude: Tense Motor Activity: Agitation Eye Contact: Fair Speech: Normal Volume: Loud Rhythm: Paucity of Language Sensory: Alert Orientation: Oriented to person, Oriented to place Mood: Irritable, Anxious Affect: Exaggerated Thought Organization: Disorganized Associations: Illogical Abstract Reasoning: Impaired, concrete Computation: Poor Computation Thought Content: Delusions, Paranoia Perception/Psychotic: Psychotic Current Hallucinations: Auditory Attention Span/Concentration: Distractable Language: Naming Impaired Fund of Knowledge: Poor fund of knowledge Memory: Poor-immediate Suicidal Ideation: None Homicidal Ideation: None Insight: Poor Judgment: Poor Impulse Control: Poor Assessment and Plan (1) Major neurocognitive disorder Assessment: with Behavioral disturbance. 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 Plan: 1. Admit to [facility]: reviewed Labs and awaiting Vit B12 and folate 2. Re start home medications 08/24/16: Discussed starting ant-psychotic with patient's daughter and she would like to wait and make a decision tomorrow (2) Right shoulder pain EMEKA CHO MD Aug 24, 2016 21:59
[2016-08-24 22:37] VITALS: BP 137/93; PULSE 84; RESP 16; TEMP 97.6; O2SAT 96
--- NOTE | 2016-08-24 23:36 | NUR ---
Chart Check 24 hour chart check completed
[2016-08-25 04:11] LABS: FOLATE 18.2 NG/ML (2.76-20)
--- NOTE | 2016-08-25 04:57 | NUR ---
Sleep Pt. went to sleep at 1930 last evening. Slept all through evening and night except for bathroom needs at 2030 and 0.
--- NOTE | 2016-08-25 06:16 | NUR ---
Sleep Pt. continues to sleep.
--- NOTE | 2016-08-25 07:30 | NUR ---
Sleep Times Pt went to bed at 1930 last pm and up x 2 to bathroom during the night and then up this a.m. at 0730.
[2016-08-25 07:54] VITALS: BP 102/74; PULSE 98; RESP 18; TEMP 97.3; O2SAT 99
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
[2016-08-25] MEDS: HYDROCHLOROTHIAZIDE 25 MG TABLET PO SCH (08:17)
[2016-08-25] MEDS: CALCIUM 600mg + VIT D 400 TABLET PO SCH ×2 (08:17→21:40)
[2016-08-25] MEDS: SIMETHICONE 80 MG CHEWABLE TABLET PO SCH ×3 (08:17→21:00)
[2016-08-25] MEDS: POTASSIUM CHLORIDE 20 MEQ/15 ML PO SCH ×2 (08:17→17:05)
[2016-08-25] MEDS: DILTIAZEM CD 240mg CAP (QD) PO SCH (08:17)
[2016-08-25] MEDS: ASPIRIN 325 MG TABLET PO SCH (08:23)
--- NOTE | 2016-08-25 14:04 | NUR ---
MOTOR OPERATOR--FAMILY CONTACT [facility] received return phone call from pt's daughter/DP- (Fátima Walden). She reports that pt. has been cautious and paranoid most of her life but it has gotten much worse in the past few weeks. She said pt. has always been difficult to get along with as her moods change rapidly and she gets mad easily. Pt. does not have a college degree. 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 This SW reviewed contents of proposed [place] plan with daughter. She had no additions and gave permission to sign her name in agreement on the form. The pt. gets easily agitated when she talks about the reasons she is here; reviewing the [place] plan with pt. is not conducive to helping pt. stabilize at this time. The daughter is still very confused about the use of antipsychotic and the risk of sudden . She had medical questions regarding the use of the medications because the pt. already has some heart issues. This SW referred daughter back to talking with the psychiatrist fernanda when he calls. Daughter asked what would happen if they refuse to allow the doctor to prescribe antipsychotic. Encouraged daughter ask doctor that question and to see if there is another mood stabilizer that might be effective for her labile mood. Daughter was educated about possibility that the facility might decide they cannot meet pt's needs and family could be served a 30 day notice after she returns. That would result in having to locate new placement. Encouraged daughter to talk with her siblings regarding treatment issues that are important to them and to the patient, including quality of life vs. risks of medications. Daughter states that her mother has been very unhappy since moving to the [facility] and has stated she is ready to . Confirmed with daughter that pt. is a DNR. Encouraged daughter to call back any time if she has further questions.
[2016-08-25 16:15] VITALS: BP 123/88; PULSE 76; RESP 16; TEMP 97.7; O2SAT 94
[2016-08-25] MEDS: HYDROCODONE/APAP 5 mg/325 mg TABLET PO PRN ×2 (17:40→21:41)
--- NOTE | 2016-08-25 17:40 | NUR ---
PRN Med [place] 5 one po for pain 10/10 right shoulder burning.
--- NOTE | 2016-08-25 18:17 | NUR ---
PRN Med Pt states pain 01/28 now. Doing right arm range of motion exercises.
--- NOTE | 2016-08-25 18:20 | NUR ---
Sleep Time Pt had .50 hour of sleep since awake at 0730.
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
--- NOTE | 2016-08-25 19:27 | GENPN ---
[facility] Subjective Date DATE: 08/25/16 TIME: 19:20 Subjective/Severity of Illness Medications Current Medications Medications (Trade) Dose Ordered Sig/Cm Start Time Stop Time Status Last Admin Dose Admin Miscellaneous Medication (May use PRN orders) 1 PRN PRN 08/22/16 21:15 Haloperidol (Haldol) 0.5 mg Q6H PRN 08/22/16 21:15 Lorazepam (Ativan) 0.5 mg Q6H PRN 08/22/16 21:15 Lorazepam (Ativan) 0.5 mg Q6H PRN 08/22/16 21:15 Haloperidol Lactate (Haldol 5 Mg/ml Inj) 0.5 mg Q6H PRN 08/22/16 21:15 Aspirin (ASA) 325 mg DAILY 08/23/16 09:00 08/25/16 08:23 325 MG Atorvastatin Calcium (LIPITOR 40 mg) 40 mg HS 08/23/16 21:00 08/24/16 21:08 40 MG Calcium/Vitamin D (Caltrate + D) 1 tab BID 08/23/16 09:00 08/25/16 08:17 1 TAB Diltiazem HCl (Cardizem Cd) 240 mg DAILY 08/23/16 09:00 08/25/16 08:17 240 MG Hydrochlorothiazide (Hydrodiuril) 25 mg QD 08/22/16 21:15 08/23/16 06:25 DC Simethicone (MYLICON 80 mg) 80 mg TID 08/23/16 09:00 08/25/16 14:43 80 MG Potassium Chloride (KCl Oral Liq) 20 meq BIDWM 08/23/16 08:00 08/25/16 17:05 20 MEQ Hydrochlorothiazide (Hydrodiuril) 25 mg 09 08/23/16 09:00 08/25/16 08:17 25 MG Acetaminophen (Tylenol Regular Strength) 1-2 tabs Q5H PRN 08/22/16 22:15 08/22/16 22:16 650 MG Acetaminophen/ Hydrocodone Bitart ([place] 5/325) 1 tab Q4H PRN 08/23/16 01:45 08/25/16 17:40 1 TAB Subjective Pt seen and chart examined. Nursing reports pt is doing better. Slept well and has a good appetite. Has some paranoia at times but has been pleasant and no behaviors noted. On face to face the pt is pleasant and cooperative. She is only oriented to self. Pt states she is not sure why she is here. She reports tolerating her medications well and voices no concerns at this time. Time of Service: 16:00 Start Time: 16:15 Stop Time: 16:30 Care >50% of this visit spent in counseling/coordination care. [facility] Exam Vitals Vital Signs Date Time Temp Pulse Resp B/P Pulse Ox O2 Delivery O2 Flow Rate FiO2 08/25/16 16:15 97.7 76 16 123/88 94 Room Air Physical examination performed by the hospitalist. Height (Feet): 5 Height (Inches): 6.00 Mental Status Exam Muscle Strength/Tone: Normal Dressing: Casual Grooming: Good Attitude: Cooperative Motor Activity: Normal Eye Contact: Good Speech: Normal Volume: Normal Rhythm: Appropriate Rhythm Sensory: Alert Orientation: Oriented to person Mood: Euthymic Affect: Congruent Rate of Thoughts: Appropriate Rate Thought Organization: [place] Associations: Intact Abstract Reasoning: Poor abstract reasoning Thought Content: Paranoia Perception/Psychotic: Psychotic Attention Span/Concentration: Short Span Fund of Knowledge: Poor fund of knowledge Memory: Poor-immediate, Poor-recent Suicidal Ideation: None Homicidal Ideation: None Insight: Fair Judgment: Fair Impulse Control: Fair Assessment and Plan (1) Major neurocognitive disorder Assessment: with Behavioral disturbance. 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 Plan: 1. Admit to [facility]: reviewed Labs and awaiting Vit B12 and folate 2. Re start home medications 08/24/16: Discussed starting ant-psychotic with patient's daughter and she would like to wait and make a decision tomorrow 08/25/16. Had discussion with daughter about medications. Discussed Depakote and at this time daughter would be more comfortable with Depakote due to side effects. We discussed how this could help with agitation but would not help with paranoia and delusions. We discussed we would start Depakote and if symptoms do no improve by Sunday we would talk again about antipsychotics. (2) Right shoulder pain Had discussion with daughter about medications. Discussed Depakote and at this time daughter would be more comfortable with Depakote due to side effects. We discussed how this could help with agitation but would not help with paranoia and delusions. We discussed we would start Depakote and if symptoms do no improve by Sunday we would talk again about antipsychotics. Depakote 250mg PO BID MARTIN ROJAS MD Aug 25, 2016 19:24
[2016-08-25 20:59] VITALS: BP 116/79; PULSE 80; RESP 16; TEMP 97.6; O2SAT 97
[2016-08-25] MEDS: DIVALPROEX SPRINKLE 125 MG CAPSULE PO SCH (21:00)
[2016-08-25] MEDS: ATORVASTATIN 40 MG TABLET PO SCH (21:40)
--- NOTE | 2016-08-25 21:47 | NUR ---
Patient refused to take depakote, states no one discussed it with her and she does not feel comfortable mixing her medications this late in the evening. PT states she will take it in the morning. PT slightly agitated at this time, she called a 2100 for pain medication RN and patient discussed medications, goals and plan of care at 1930 and PT was instructed pain medication could be brought in at 2150 due to last pill at 1740. PT called at 2100 and states no one ever gave her pain medications. RN returned at 2140 with medications and ice water. PT was talking to herself while RN was outside of the patient room.
--- NOTE | 2016-08-26 05:39 | NUR ---
sleep times Patient got into bed at 2000 and fell asleep at 2215. Patient slept well overnight, patient got up to go to the restroom at 0100 this morning. Patient went back to sleep after void and is still asleep at this time.
--- NOTE | 2016-08-26 05:55 | NUR ---
Shift summary: Patient was talking a lot last night to staff and other patients. Patient was appropriate. Patient went to bed at 1999 and fell asleep at 2214. Patient transferred herself to and from bed and did all cares in restroom. Patient followed commands. Patient took a pain pill at 2139 and it controlled her shoulder pain. Patient was agitated at staff when ready to go to bed she was talking to herself but calm, patient asked that staff leave and she started speaking to herself again and then went back to sleep. Patient was polite and talked about her family with nurse. Patient was not incontinent over shift. LCTAB, bowels active in all quadrants, capillary refill in all extremities, no pitting edema, pt has a bruise on her right arm. 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 Will pass on in report to day shift. Heart sounds are s1s2.
[2016-08-26 08:42] VITALS: BP 125/81; PULSE 96; RESP 16; TEMP 97.9; O2SAT 98
[2016-08-26] MEDS: DIVALPROEX SPRINKLE 125 MG CAPSULE PO SCH (09:00)
[2016-08-26] MEDS: ASPIRIN 325 MG TABLET PO SCH (09:00)
--- NOTE | 2016-08-26 09:00 | NUR ---
Patient slept 8.5 hours last night
[2016-08-26] MEDS: SIMETHICONE 80 MG CHEWABLE TABLET PO SCH ×3 (09:21→17:11)
[2016-08-26] MEDS: POTASSIUM CHLORIDE 20 MEQ/15 ML PO SCH ×2 (09:21→17:10)
[2016-08-26] MEDS: HYDROCHLOROTHIAZIDE 25 MG TABLET PO SCH (09:22)
[2016-08-26] MEDS: CALCIUM 600mg + VIT D 400 TABLET PO SCH ×2 (09:22→17:10)
[2016-08-26] MEDS: DILTIAZEM CD 240mg CAP (QD) PO SCH (09:22)
--- NOTE | 2016-08-26 10:10 | NUR ---
Status/Behavior Patient is awake at 0915 rounds; asked to get out of bed and eat breakfast. Staff provide SBA, stand outside of her room when she uses the bathroom for privacy and per request: states it makes her nervous and she can't pee when somebody's watching. She is overheard having the following conversation "right, she didn't have to help that much. Ok, hon I appreciate it and thank you for bringing me the phone. I'll talk to you later. No, I'm going to call you back; I got to go potty". Staff are in the hallway at time of conversation. When asked whom she was talking to patient laughs and asks this RN if the doctor had given any order for her to go home. She propels herself in her wheelchair to dining room, eats 100% of breakfast independently and is presently using the bathroom. She is able to make her needs known, is cooperative with cares and takes medications whole without argument or incident
--- NOTE | 2016-08-26 13:49 | GENPN ---
[facility] Subjective Date DATE: 08/26/16 TIME: 13:44 Subjective/Severity of Illness Medications Current Medications Medications (Trade) Dose Ordered Sig/Cm Start Time Stop Time Status Last Admin Dose Admin Miscellaneous Medication (May use PRN orders) 1 PRN PRN 08/22/16 21:15 Haloperidol (Haldol) 0.5 mg Q6H PRN 08/22/16 21:15 Lorazepam (Ativan) 0.5 mg Q6H PRN 08/22/16 21:15 Lorazepam (Ativan) 0.5 mg Q6H PRN 08/22/16 21:15 Haloperidol Lactate (Haldol 5 Mg/ml Inj) 0.5 mg Q6H PRN 08/22/16 21:15 Aspirin (ASA) 325 mg DAILY 08/23/16 09:00 08/26/16 09:00 325 MG Atorvastatin Calcium (LIPITOR 40 mg) 40 mg HS 08/23/16 21:00 08/25/16 21:40 40 MG Calcium/Vitamin D (Caltrate + D) 1 tab BID 08/23/16 09:00 08/26/16 09:22 1 TAB Diltiazem HCl (Cardizem Cd) 240 mg DAILY 08/23/16 09:00 08/26/16 09:22 240 MG Hydrochlorothiazide (Hydrodiuril) 25 mg QD 08/22/16 21:15 08/23/16 06:25 DC Simethicone (MYLICON 80 mg) 80 mg TID 08/23/16 09:00 08/26/16 09:21 80 MG Potassium Chloride (KCl Oral Liq) 20 meq BIDWM 08/23/16 08:00 08/26/16 09:21 20 MEQ Hydrochlorothiazide (Hydrodiuril) 25 mg 09 08/23/16 09:00 08/26/16 09:22 25 MG Acetaminophen (Tylenol Regular Strength) 1-2 tabs Q5H PRN 08/22/16 22:15 08/22/16 22:16 650 MG Acetaminophen/ Hydrocodone Bitart ([place] 5/325) 1 tab Q4H PRN 08/23/16 01:45 08/25/16 21:41 1 TAB Divalproex Sodium (Depakote Sprinkle) 250 mg BID 08/25/16 21:00 08/26/16 09:12 DC Divalproex Sodium (Depakote) 250 mg BID 08/26/16 21:00 Subjective Pt seen and chart examined. Nursing reports pt is doing better. Slept well and has a good appetite. pt refused hs depakote. nursing reports has been talking on an imaginary phone and carrying on conversations with herself. on face to face the pt states she is doing well. she is only oriented to self. she voices no concerns at this time Time of Service: 09:00 Start Time: 09:00 Stop Time: 09:15 Care >50% of this visit spent in counseling/coordination care. [facility] Exam Vitals Vital Signs Date Time Temp Pulse Resp B/P Pulse Ox O2 Delivery O2 Flow Rate FiO2 08/26/16 08:42 97.9 96 16 125/81 98 Room Air Physical examination performed by the hospitalist. Height (Feet): 5 Height (Inches): 6.00 Mental Status Exam Muscle Strength/Tone: Normal Dressing: Casual Grooming: Good Attitude: Cooperative Motor Activity: Normal Eye Contact: Fair Speech: Slowed Volume: Soft Rhythm: Appropriate Rhythm Sensory: Alert Orientation: Oriented to person Mood: Euthymic Affect: Congruent Rate of Thoughts: Delayed Thought Organization: [place] Associations: Loose-associations Abstract Reasoning: Impaired, concrete Thought Content: Delusions Perception/Psychotic: Hx psychosis,not current Attention Span/Concentration: Short Span Fund of Knowledge: Poor fund of knowledge Memory: Poor-immediate, Poor-recent Suicidal Ideation: None Homicidal Ideation: None Insight: Poor Judgment: Poor Impulse Control: Poor Assessment and Plan (1) Major neurocognitive disorder Assessment: with Behavioral disturbance. 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 Plan: 1. Admit to [facility]: reviewed Labs and awaiting Vit B12 and folate 2. Re start home medications 08/24/16: Discussed starting ant-psychotic with patient's daughter and she would like to wait and make a decision tomorrow 08/25/16. Had discussion with daughter about medications. Discussed Depakote and at this time daughter would be more comfortable with Depakote due to side effects. We discussed how this could help with agitation but would not help with paranoia and delusions. We discussed we would start Depakote and if symptoms do no improve by Sunday we would talk again about antipsychotics. 08/26/16 continue current care (2) Right shoulder pain Cont. current psych. meds MARTIN ROJAS MD Aug 26, 2016 13:47
[2016-08-26 16:38] VITALS: BP 125/81; PULSE 84; RESP 18; TEMP 97.8; O2SAT 97
[2016-08-26] MEDS: ATORVASTATIN 40 MG TABLET PO SCH (17:10)
[2016-08-26] MEDS: DIVALPROEX 250 MG TABLET PO SCH (17:11)
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
[2016-08-26 19:35] VITALS: BP 134/84; PULSE 87; RESP 18; TEMP 98; O2SAT 98
[2016-08-26] MEDS: HYDROCODONE/APAP 5 mg/325 mg TABLET PO PRN (19:38)
[2016-08-26] MEDS ORDERED: DIVALPROEX 250 MG TABLET PO SCH (21:00)
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
--- NOTE | 2016-08-26 23:48 | NUR ---
Bedtime Patient was in bed (following shower) at 2044 and asleep by 2099. Up to use bathroom x1 but then falls quickly back to sleep. Patient was awake all of dayshift. Sleeping quietly at the current time. Bed alarm is on and side rails are up x2.
--- NOTE | 2016-08-27 01:06 | NUR ---
Chart Check 24 hour chart check completed
[2016-08-27 01:21] VITALS: BP 123/78; PULSE 83; RESP 18; TEMP 96.8; O2SAT 95
--- NOTE | 2016-08-27 05:51 | NUR ---
Summary MARIA GUADALUPE to person only this shift and in a pleasant/cooperative mood. Isolates in room last evening per her reports of fatigue. Performs self-care as able; allows/is appreciative of staff assistance when needed. Requires only minimal encouragement/reassurances to take shower last evening. Likes to pivot-transfer independently; requires stand-by assist as she is unsteady in taking several steps in the transfer process. Repositions self in bed prn. [place] was effective in relieving right shoulder pain last evening. VS and assessment have remained stable. Continent of urine and is able to notify staff of needs; instructed on the use of the call carl, but she is forgetful and sets off bed alarm overnight in getting up to void. Readily compliant with medications. When up to toilet, she reports that she has been able to sleep well and appears to fall back to sleep easily. No paranoid or suspicious behavior is noted toward staff; reference x1 last evening regarding "electrodes" although she does not ruminate on this. Resting quietly at the current time. Bed alarm is on and side rails are up x2.
[2016-08-27 08:00] VITALS: BP 108/72; PULSE 102; RESP 18; TEMP 97.2; O2SAT 98
[2016-08-27] MEDS: CALCIUM 600mg + VIT D 400 TABLET PO SCH ×2 (08:30→17:11)
[2016-08-27] MEDS: POTASSIUM CHLORIDE 20 MEQ/15 ML PO SCH ×2 (08:30→17:10)
[2016-08-27] MEDS: HYDROCHLOROTHIAZIDE 25 MG TABLET PO SCH (08:31)
[2016-08-27] MEDS: DILTIAZEM CD 240mg CAP (QD) PO SCH (08:31)
[2016-08-27] MEDS: SIMETHICONE 80 MG CHEWABLE TABLET PO SCH ×3 (08:31→17:11)
[2016-08-27] MEDS: DIVALPROEX 250 MG TABLET PO SCH ×2 (08:32→17:12)
[2016-08-27] MEDS: ASPIRIN 325 MG TABLET PO SCH (08:48)
[2016-08-27 09:09] VITALS: BP 108/72; PULSE 102; RESP 18; TEMP 97.2; O2SAT 98
--- NOTE | 2016-08-27 10:00 | NUR ---
wake up time PATIENT WOKE UP AT 0800 AND SLEPT FOR A TOTAL OF 11 HOURS LAST NIGHT.
--- NOTE | 2016-08-27 10:54 | GENPN ---
[facility] Subjective Date DATE: 08/27/16 TIME: 10:51 Subjective/Severity of Illness Medications Current Medications Medications (Trade) Dose Ordered Sig/Cm Start Time Stop Time Status Last Admin Dose Admin Miscellaneous Medication (May use PRN orders) 1 PRN PRN 08/22/16 21:15 Haloperidol (Haldol) 0.5 mg Q6H PRN 08/22/16 21:15 Lorazepam (Ativan) 0.5 mg Q6H PRN 08/22/16 21:15 Lorazepam (Ativan) 0.5 mg Q6H PRN 08/22/16 21:15 Haloperidol Lactate (Haldol 5 Mg/ml Inj) 0.5 mg Q6H PRN 08/22/16 21:15 Aspirin (ASA) 325 mg DAILY 08/23/16 09:00 08/27/16 08:48 325 MG Atorvastatin Calcium (LIPITOR 40 mg) 40 mg HS 08/23/16 21:00 08/26/16 15:21 DC 08/25/16 21:40 40 MG Calcium/Vitamin D (Caltrate + D) 1 tab BID 08/23/16 09:00 08/26/16 15:21 DC 08/26/16 09:22 1 TAB Diltiazem HCl (Cardizem Cd) 240 mg DAILY 08/23/16 09:00 08/27/16 08:31 240 MG Hydrochlorothiazide (Hydrodiuril) 25 mg QD 08/22/16 21:15 08/23/16 06:25 DC Simethicone (MYLICON 80 mg) 80 mg TID 08/23/16 09:00 08/26/16 15:21 DC 08/26/16 09:21 80 MG Potassium Chloride (KCl Oral Liq) 20 meq BIDWM 08/23/16 08:00 08/27/16 08:30 20 MEQ Hydrochlorothiazide (Hydrodiuril) 25 mg 09 08/23/16 09:00 08/27/16 08:31 25 MG Acetaminophen (Tylenol Regular Strength) 1-2 tabs Q5H PRN 08/22/16 22:15 08/22/16 22:16 650 MG Acetaminophen/ Hydrocodone Bitart ([place] 5/325) 1 tab Q4H PRN 08/23/16 01:45 08/26/16 19:38 1 TAB Divalproex Sodium (Depakote Sprinkle) 250 mg BID 08/25/16 21:00 08/26/16 09:12 DC Divalproex Sodium (Depakote) 250 mg BID 08/26/16 21:00 08/26/16 21:00 DC Atorvastatin Calcium (LIPITOR 40 mg) 40 mg 18 08/26/16 18:00 08/26/16 17:10 40 MG Calcium/Vitamin D (Caltrate + D) 1 tab ,08/26/16 18:00 08/27/16 08:30 1 TAB Divalproex Sodium (Depakote) 250 mg ,08/26/16 18:00 08/27/16 08:32 250 MG Simethicone (MYLICON 80 mg) 80 mg ,,18 08/26/16 18:00 08/27/16 08:31 80 MG Subjective Pt seen and chart examined. Nursing reports pt is fairly table. Sleeping well and has a good appetite. No behaviors noted. On face to face the pt states she is doing well. She is only oriented to self but is pleasant and voices no concerns. She denies any pain. Tolerating meds. Time of Service: :00 Start Time: :00 Stop Time: 09:15 Care >50% of this visit spent in counseling/coordination care. [facility] Exam Vitals Vital Signs Date Time Temp Pulse Resp B/P Pulse Ox O2 Delivery O2 Flow Rate FiO2 08/27/16 09:09 97.2 102 18 108/72 98 Room Air Physical examination performed by the hospitalist. Height (Feet): 5 Height (Inches): 6.00 Mental Status Exam Muscle Strength/Tone: Normal Dressing: Casual Grooming: Good Attitude: Cooperative Motor Activity: Normal Eye Contact: Good Speech: Slowed Volume: Soft Rhythm: Appropriate Rhythm Sensory: Alert Orientation: Oriented to person Mood: Euthymic Affect: Congruent Rate of Thoughts: Delayed Thought Organization: [place] Associations: Intact Abstract Reasoning: Impaired, concrete Perception/Psychotic: Perception Normal Attention Span/Concentration: Short Span Fund of Knowledge: Poor fund of knowledge Memory: Poor-immediate, Poor-recent Suicidal Ideation: None Homicidal Ideation: None Insight: Fair Judgment: Fair Impulse Control: Fair Assessment and Plan (1) Major neurocognitive disorder Assessment: with Behavioral disturbance. 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 Plan: 1. Admit to [facility]: reviewed Labs and awaiting Vit B12 and folate 2. Re start home medications 08/24/16: Discussed starting ant-psychotic with patient's daughter and she would like to wait and make a decision tomorrow 08/25/16. Had discussion with daughter about medications. Discussed Depakote and at this time daughter would be more comfortable with Depakote due to side effects. We discussed how this could help with agitation but would not help with paranoia and delusions. We discussed we would start Depakote and if symptoms do no improve by Sunday we would talk again about antipsychotics. 08/26/16 continue current care 08/27/16 Continue current care (2) Right shoulder pain Cont. current psych. meds MARTIN ROJAS MD Aug 27, 2016 10:54
--- NOTE | 2016-08-27 14:00 | NUR ---
STATUS patient has been pleasant, cooperative with cares, compliant with medications. Patient has been polite to staff. Patient denies any pain, no hallucinations noted, no paranoia noted, patient came out for meals, and stay out in the dining room to watch movies. No inappropriate behaviors noted. patient denies need or concerns at them moment.
[2016-08-27 15:38] VITALS: BP 141/73; PULSE 58; RESP 16; TEMP 97.5; O2SAT 95
[2016-08-27 16:00] VITALS: BP 125/76; PULSE 80; RESP 18; TEMP 97.2; O2SAT 98
--- NOTE | 2016-08-27 16:12 | PNPDOC ---
ANTHONY SWIFT GROUNDMAN 08/27/16 1610: Subjective Date DATE: 08/27/16 TIME: 16:06 Subjective Rossi was resting in her bed, but easily awakened. She states that she has been feeling good, except is "so tired". No physical c/o such as CP, dyspnea, abd pain or GI complaints. She's been eating well. Last BM 08/25. Nurses deny any concerns, and she's been cooperative with cares. Objective Vital Signs Vital signs Vital Signs Date Time Temp Pulse Resp B/P Pulse Ox O2 Delivery O2 Flow Rate FiO2 08/27/16 09:09 97.2 102 18 108/72 98 Room Air Height (Feet): 5 Height (Inches): 6.00 Weight (Kilograms): 75.800 General General Appearance: Alert, No Acute Distress Respiratory (Brief) Respiratory: FOUND: clear all goldstein, equal bilaterally Cardiovascular (Brief) Cardiac: FOUND: other (irregular) Abdomen (Brief) Abdominal: FOUND: BS normo active x4, soft, NOT FOUND: tender Extremities (Brief) Extremity : Side: Bilateral Extremity Finding: NOT FOUND: edema Musculoskeletal (Brief) Musculoskeletal: NOT FOUND: deformity Integumentary (Brief) Integumentary: FOUND: dry, pink, warm Psychiatric (Brief) Psychiatric: FOUND: alert, attentive, normal affect Assessment & Plan Problems: (1) Dementia with behavioral disturbance Status: Acute (2) Atrial fibrillation (3) CAD (coronary artery disease) Status: Chronic (4) Hyperlipidemia Status: Chronic (5) HTN (hypertension) Status: Chronic (6) Constipation Status: Chronic (7) GERD (gastroesophageal reflux disease) Status: Chronic (8) Right shoulder pain Status: Chronic (9) Overweight (BMI 25.0-29.9) Status: Chronic (10) Vitamin B12 deficiency Assessment & Plan: Injections started 08/27/16 Plan/Intensity of Service Vit. B12 deficiency - start daily injections x1 week, then consider changing to PO Otherwise Medically stable - cont to monitor HR, occ. tachycardia (known Afib) Psych progress notes reviewed. Imaging studies pending. Code Status Do Not Resuscitate Hospital Course Summary Disclaimer The hospital course summary below is not to be considered part of the above Progress Note. Hospital Course Summary 08/23/16 Agree with admission. Labs reviewed - stable. A-fib - Cont ASA 325 and diltiazem. Rate controlled. HTN & dyslipidemia - cont. home meds. Chronic right shoulder pain - pt reports she's "missing the rotator cuff" - Sellers and Tylenol PRN. F/U on pending labs and imaging. Dementia with delusional thinking - per attending. 08/27/16 Vit. B12 deficiency - start daily injections x1 week, then consider changing to PO Otherwise Medically stable - cont to monitor HR, occ. tachycardia (known Afib) Psych progress notes reviewed. Imaging studies pending. LIZA HULL MD 08/27/16 1904: Assessment & Plan Assessment 08/27/2016-I reviewed this chart, the patient history, and the GROUNDMAN's/PA's documented findings as above. We discussed and formulated the assessment and plan as above with the additions below.-Dr. Elmer Richey was seen in the day room this evening after supper. She stated she was feeling great and she had no complaints. She denied any pain. HEENT reveals sclera to be anicteric and oropharynx is moist. On exam she is alert and appears to be in a very good mood. Neck is supple. Chest is clear to auscultation. Cardiovascular reveals a regular rate and rhythm. Abdomen is soft and nontender. Extremities are free of edema. She uses a wheelchair but has good range of motion of her legs and lifts them high in the air when I tell her I want to check her ankles. Patient currently appears medically stable. Heart rate is currently controlled. Continue with current treatment. I agree with treatment for B-12 deficiency. ANTHONY SWIFT APRN Aug 27, 2016 16:10 LIZA HULL MD Aug 27, 2016 19:04
[2016-08-27] MEDS: HYDROCODONE/APAP 5 mg/325 mg TABLET PO PRN ×2 (16:45→20:54)
[2016-08-27] MEDS: ATORVASTATIN 40 MG TABLET PO SCH (17:11)
--- NOTE | 2016-08-27 17:32 | NUR ---
SHIFT SUMMARY Patient is AO x 2. Patient has been pleasant, cooperative with cares, compliant with medications. Patient complained of pain on her right shoulder this evening, norco 5 /325 was given. Patient has been transferring her self with supervision, she has been polite and is able to make needs known. Patient speech is clear and disorganized at times. Patient came to the dining room for meals and stay out in the day room to watch movies. No inappropriate behaviors noted, no hallucinations noted, no aggressive behaviors noted, no paranoia noted. patient had a happy mood this shift, smile and socialize with staff and patients. Patient did go to her room a couple of times to rest and take a nap. Patient has her cell phone with her but did not used it at all this shift. Patient slept 11 hours last night, she took nap during the day.
[2016-08-27 19:50] VITALS: BP 125/66; PULSE 87; RESP 20; TEMP 97.8; O2SAT 97
--- NOTE | 2016-08-28 01:03 | NUR ---
Status/PRN and Follow-Up/Behaviors Assumed patient care at 1914 and assessment completed at 1949. Patient is in dayroom at time of assessment; she wheels herself in her w/c and politely engages staff and other patients in conversation. MARIA GUADALUPE to person and place ("hospital" - but not to town). Thought process is logical and VS are stable. She c/o right shoulder pain +9/10; Tylenol is offered but she requests to wait until it is time for her prn Galien. She will occasionally pull out her cell phone and hold it up to her ear - she appears to be listening and will nod occasionally but is not heard talking on it (she does not dial any numbers, and the phone is not noted to be on). Galien 5/325 mg. (1 tablet) given po at 2053 for c/o right shoulder pain that she states is now +10/10. Readily compliant with prn medication. Patient remains with a relaxed posture and smiles at/converses pleasantly with others. She asks that someone look in her closet and around her room prior to HS cares, "Because there is too much crap going on." She does not expound further and appears to reassure easily. Continent of urine and is able to notify staff of needs. Attempts to be independent with cares as able. Pivot transfers self to/from wheelchair, taking several unsteady steps; stand-by assist is provided. She is accepting/appreciative of staff assistance when needed. After HS cares are provided, she asks for her pain medication. Reviewed with patient the previous Galien administration and alternative methods for pain relief/relaxation are offered (position change, heat therapy, music, reading, television, etc.) until pain medication takes effect. The patient angrily interrupts and uses a sarcastic/angry tone. Accuses staff of lying "since I don't have any powder in my teeth." Mean facial expressions and escalating voice; states that she will "take the blood of Rajeev to you" and "I can look right through you!" Listening presence/emotional support/explanations attempted but this seems to only irritate the patient AEB escalating tones and threats to "give you what you have coming!" Patient is only verbally aggressive, she does not demonstrate any physical aggressiveness toward staff. When she is given space, she talks to herself in a mumbled tone for a short time in her room (illogical/disorganized comments) but then quiets.
--- NOTE | 2016-08-28 01:47 | NUR ---
Bedtime Patient was in bed by 2114 and asleep by 2314. She was awake all of dayshift. Sleeping quietly at the current time. Bed alarm is on and side rails are up x2.
--- NOTE | 2016-08-28 03:19 | NUR ---
Chart Check 24 hour chart check completed
--- NOTE | 2016-08-28 05:36 | NUR ---
Summary Consistently MARIA GUADALUPE to person only this shift. Pleasant, passive, conversational, and polite behavior last evening in dayroom, interacting appropriately with both staff and patients. Forgetful regarding the administration of her prn pain medication, and becomes angry with staff attempts to clarify. Yells and threatens but is not physically aggressive. Some paranoia is noted; wants staff to check her room and closet prior to bedtime/also accuses staff of lying to her. Illogical thought process is noted. Continent of urine and able to notify staff of needs. Remains irritable this morning when asked if she needed to use the bathroom; frowns and states that she wants to be left alone. When questioned about the presence of pain, she refuses to answer. Refuses to allow VS reassessment - pulls covers over her head. Bed alarm is on and side rails are up x2.
[2016-08-28] MEDS: POTASSIUM CHLORIDE 20 MEQ/15 ML PO SCH ×2 (07:50→17:26)
[2016-08-28] MEDS: DILTIAZEM CD 240mg CAP (QD) PO SCH (07:51)
[2016-08-28] MEDS: SIMETHICONE 80 MG CHEWABLE TABLET PO SCH ×3 (07:51→17:27)
[2016-08-28] MEDS: CALCIUM 600mg + VIT D 400 TABLET PO SCH ×2 (07:51→17:26)
[2016-08-28] MEDS: DIVALPROEX 250 MG TABLET PO SCH ×2 (07:51→17:31)
[2016-08-28] MEDS: ASPIRIN 325 MG TABLET PO SCH (07:51)
[2016-08-28] MEDS: HYDROCHLOROTHIAZIDE 25 MG TABLET PO SCH (07:52)
[2016-08-28 07:57] VITALS: BP 103/74; PULSE 96; RESP 20; TEMP 97.2; O2SAT 97
[2016-08-28 08:00] VITALS: PULSE 96; RESP 20
[2016-08-28] MEDS: CYANOCOBALAMIN (B-12) 1000mcg/ml INJECTION SQ SCH (08:02)
--- NOTE | 2016-08-28 10:33 | DI ---
Indication: ITS.REASON: mental status change PROCEDURE: CT HEAD W/O CONTRAST: Encounter: Initial Comparison: None Technique: Axial CT images through the head were performed without contrast. Iterative Reconstruction dose reducing technique was utilized. FINDINGS: Mild generalized atrophy. 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 The ventricles are of normal size, shape, and contour for the patient's age. There are scattered areas of low attenuation in the white matter which most likely represent changes from chronic microvascular ischemia. The brainstem, cerebellum, and cerebral hemispheres otherwise have a normal morphology and CT attenuation. There is no evidence of midline displacement. No hemorrhage, signs of acute territorial stroke, mass effect, mass lesions, or edema is evident. The visualized portions of the skull base, midface, and calvarium demonstrate no abnormality. The paranasal sinuses are well aerated and free of significant disease. The tympanic and mastoid cavities appear normal. IMPRESSION: No acute intracranial abnormality or hemorrhage. .
--- NOTE | 2016-08-28 10:34 | DI ---
INDICATION: ITS.REASON: mental status change PROCEDURE: CHEST 2-VIEWS UPRIGHT (PA \T\ LAT) Encounter: Initial COMPARISON: None FINDINGS: The lungs are clear without evidence of focal abnormal airspace opacity. There is no pleural effusion or pneumothorax. Tortuous ectatic thoracic aorta. Heart size is normal. Pulmonary vascularity is normal. Chronic appearing mild wedge deformities of the lower thoracic and upper lumbar spine with moderate multilevel degenerative change. Cervical spine hardware. IMPRESSION: No acute cardiopulmonary disease. .
--- NOTE | 2016-08-28 10:53 | NUR ---
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 as present and actively engaged in psychoeducational group facilitated by [facility]. Activity involved neurocognitive game to help stimulate general recall of information regarding Easter holiday and favorite childhood memory of Easter. Pt. was alert, Ox2, calm, with pleasant mood. She was having her hair styled by staff member during the group but she was still able to participate. She knew most of the answers to questions about roman catholic significance of Easter holiday. She offered to let other participants answer the questions but she was the one with the highest skills. Ended group by playing variety of Church hymns. At the end, pt. smiled and expressed appreciation for the content of the group.
--- NOTE | 2016-08-28 13:16 | NUR ---
WAKE UP TIME PATIENT WOKE UP AT 0515 THIS MORNING, SHE SLEPT A TOTAL OF 6 HOURS LAST NIGHT
--- NOTE | 2016-08-28 13:17 | NUR ---
STATUS Patient has been pleasant, cooperative with cares, compliant with medications, no inappropriate behaviors noted. Patient denies any pain this morning. Happy mood, smiles at times, participated in group activity today. Patient has been socializing with staff well, she has been polite, no paranoia or hallucination noted. Patient denies needs or concerns at the moment.
--- NOTE | 2016-08-28 14:44 | NUR ---
HAND TACKER--PM GROUP Pt. was present and actively engaged in psychoeducational group facilitated by [facility]. Topic involved was on importance of laughter and having fun at any age. Patients were encouraged to stay active and socialize whenever opportunity presents itself, such as through zoroastrianism, community venues, family gatherings, etc. Patients were asked to identify things that they have enjoyed doing at some time in their life. Pt. mentioned how much she enjoyed music and dancing. Played variety of tunes from 50's and 60's. Pt. would smile in recognition of many of the songs played. She shared memories of cruising [email or web address] and sneaking out when she was in high school. She cheered on other patients who were dancing. Pt. asked one of the nurses if she would help hold her up so she could dance. The two swayed, laughed, and danced together for one of the songs. Pt. expressed gratitude for the group time.
[2016-08-28 16:10] VITALS: BP 121/78; PULSE 77; RESP 16; TEMP 97.8; O2SAT 97
[2016-08-28] MEDS: ATORVASTATIN 40 MG TABLET PO SCH (17:27)
[2016-08-28] MEDS: HYDROCODONE/APAP 5 mg/325 mg TABLET PO PRN (19:01)
--- NOTE | 2016-08-28 19:03 | GENPN ---
[facility] Subjective Date DATE: 08/28/16 TIME: 09:13 Subjective/Severity of Illness Medications Current Medications Medications (Trade) Dose Ordered Sig/Cm Start Time Stop Time Status Last Admin Dose Admin Miscellaneous Medication (May use PRN orders) 1 PRN PRN 08/22/16 21:15 Haloperidol (Haldol) 0.5 mg Q6H PRN 08/22/16 21:15 Lorazepam (Ativan) 0.5 mg Q6H PRN 08/22/16 21:15 Lorazepam (Ativan) 0.5 mg Q6H PRN 08/22/16 21:15 Haloperidol Lactate (Haldol 5 Mg/ml Inj) 0.5 mg Q6H PRN 08/22/16 21:15 Aspirin (ASA) 325 mg DAILY 08/23/16 09:00 08/28/16 07:51 325 MG Atorvastatin Calcium (LIPITOR 40 mg) 40 mg HS 08/23/16 21:00 08/26/16 15:21 DC 08/25/16 21:40 40 MG Calcium/Vitamin D (Caltrate + D) 1 tab BID 08/23/16 09:00 08/26/16 15:21 DC 08/26/16 09:22 1 TAB Diltiazem HCl (Cardizem Cd) 240 mg DAILY 08/23/16 09:00 08/28/16 07:51 240 MG Hydrochlorothiazide (Hydrodiuril) 25 mg QD 08/22/16 21:15 08/23/16 06:25 DC Simethicone (MYLICON 80 mg) 80 mg TID 08/23/16 09:00 08/26/16 15:21 DC 08/26/16 09:21 80 MG Potassium Chloride (KCl Oral Liq) 20 meq BIDWM 08/23/16 08:00 08/28/16 07:50 20 MEQ Hydrochlorothiazide (Hydrodiuril) 25 mg 09 08/23/16 09:00 08/28/16 07:52 25 MG Acetaminophen (Tylenol Regular Strength) 1-2 tabs Q5H PRN 08/22/16 22:15 08/22/16 22:16 650 MG Acetaminophen/ Hydrocodone Bitart ([place] 5/325) 1 tab Q4H PRN 08/23/16 01:45 08/27/16 20:54 1 TAB Divalproex Sodium (Depakote Sprinkle) 250 mg BID 08/25/16 21:00 08/26/16 09:12 DC Divalproex Sodium (Depakote) 250 mg BID 08/26/16 21:00 08/26/16 21:00 DC Atorvastatin Calcium (LIPITOR 40 mg) 40 mg 18 08/26/16 18:00 08/27/16 17:11 40 MG Calcium/Vitamin D (Caltrate + D) 1 tab ,08/26/16 18:00 08/28/16 07:51 1 TAB Divalproex Sodium (Depakote) 250 mg ,08/26/16 18:00 08/28/16 07:51 250 MG Simethicone (MYLICON 80 mg) 80 mg ,,08/26/16 18:00 08/28/16 07:51 80 MG Cyanocobalamin (Vit. B-12) 1,000 mcg DAILY 08/28/16 09:00 08/28/16 08:02 1,000 MCG Subjective Patient seen and chart reviewed. Case discussed with treatment team. Patient participating in group during rounds; observed participation and interaction with others. Patient is actively participating, smiling, and appears to be enjoying herself. Per staff report, patient exhibited paranoia last evening with staff. She also requested pain medication, took it and forgot, then became agitated thinking she had not gotten any. Patient will yell and threaten, but did not become physically aggressive. own behavior seems to be worse than during the day. She has been adherent with medications. Patient slept 6 hours overnight. Appetite is good. Patient denies any adverse side effects due to medications or other concerns. VSS. No new labs. Psychotropic PRNs required in the past 24 hours: none. Family was hesitant to use antipsychotics due to increased mortality risk; will review goals of care with them and make decision re: antipsychotic use. Time of Service: :00 Start Time: :00 Stop Time: 09:20 Care >50% of this visit spent in counseling/coordination care. [facility] Exam Vitals Vital Signs Date Time Temp Pulse Resp B/P Pulse Ox O2 Delivery O2 Flow Rate FiO2 08/28/16 08:00 96 20 08/28/16 07:57 97.2 103/74 97 Room Air Physical examination performed by the hospitalist. Height (Feet): 5 Height (Inches): 6.00 Mental Status Exam Muscle Strength/Tone: Normal Dressing: Casual Grooming: Good Attitude: Suspicious (at times) Motor Activity: Normal Eye Contact: Good Speech: Normal Volume: Normal Rhythm: Appropriate Rhythm Sensory: Alert Orientation: Disoriented to time, Disoriented to place, Disoriented to situation, Oriented to person Mood: Euthymic Affect: Labile (worse in evening) Rate of Thoughts: Delayed Thought Organization: Confused Abstract Reasoning: Impaired, concrete Thought Content: Paranoia (in evening) Perception/Psychotic: Other Attention Span/Concentration: Short Span Fund of Knowledge: Poor fund of knowledge Memory: Poor-immediate, Poor-recent Suicidal Ideation: None Homicidal Ideation: None Insight: Limited Judgment: Limited Impulse Control: Fair Assessment and Plan (1) Major neurocognitive disorder Assessment: with Behavioral disturbance. 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 Plan: 1. Admit to [facility]: reviewed Labs and awaiting Vit B12 and folate 2. Re start home medications 08/24/16: Discussed starting ant-psychotic with patient's daughter and she would like to wait and make a decision tomorrow 08/25/16. Had discussion with daughter about medications. Discussed Depakote and at this time daughter would be more comfortable with Depakote due to side effects. We discussed how this could help with agitation but would not help with paranoia and delusions. We discussed we would start Depakote and if symptoms do no improve by Sunday we would talk again about antipsychotics. 08/26/16 continue current care 08/27/16 Continue current care 08/28/16: Will review use of antipsychotics and treatment goals with family. Continue current care until that time. (2) Right shoulder pain Cont. current psych. meds Will review use of antipsychotics and treatment goals with family. Continue current care until that time. LUISA SARGENT MD Aug 28, 2016 09:13
--- NOTE | 2016-08-28 19:34 | NUR ---
SUMMARY Patient has been pleasant, cooperative with cares, compliant with medications. Patient participated in group activities this shift, Patient was out in the day room most of the shift, she came out to the dining room for her meals, she is able to transfer her self with staff supervision. Patient is able to make needs known, she had a happy mood today. Patient complain of pain on her right shoulder this evening, norco 5/325 was given around 1850. Patient smiles at times, she has been polite to staff she socialize with staff and other patients. No hallucinations noted, no paranoid behaviors noted. Patient denies needs or concerns at the moment.
[2016-08-28 19:56] VITALS: BP 119/73; PULSE 83; RESP 16; TEMP 98; O2SAT 97
[2016-08-28 20:05] VITALS: PULSE 88; RESP 18
[2016-08-28 23:00] VITALS: RESP 18
--- NOTE | 2016-08-28 23:00 | NUR ---
bedtime Pt slept zero on dayshi, pt went to sleep at 2300, pt is still sleeping in bed with 2 bed rails up and bed alarm on.
--- NOTE | 2016-08-28 23:47 | NUR ---
summary arrived on shift patient was alert and oriented to person only. Patient was cooperative with assessment and hs cares/shower. After shower patient was sitting in room talking to self, and answering both sides of conversation. Patient also wanted to find the "powder" for her room. When asked what powder, patient stated it was in her cabinet and that it was to be sprinkled all over to prevent intruder. Staffed showed patient there was no powder in her nurse geophysical observer. Patient transitioned to bed without issue. No prns given. Patient is currently asleep in bed with the bed alarm on, rails upx2, and call light is in reach.
--- NOTE | 2016-08-29 04:05 | NUR ---
Chart Check 24 hour chart check completed
--- NOTE | 2016-08-29 06:59 | NUR ---
shift summary Pt is alert and oriented x2, to person and situation, pt transfer x1 to wheelchair, pt woke up at 02:00 talking to herself and answering herself, pt set up on side of bed, transferred with standby assist to wheelchair, pt cooperative, pt voided, pt wheeled self to bedside, pt transferred from WC to bed with standby assist, pt has been sleeping in bed since, with 2 bed rails up and bed alarm on.
[2016-08-29 08:30] VITALS: BP 126/68; PULSE 93; RESP 16; TEMP 97.6; O2SAT 95
--- NOTE | 2016-08-29 08:30 | NUR ---
Patient slept for a total of 8.75 hours last night
[2016-08-29] MEDS: POTASSIUM CHLORIDE 20 MEQ/15 ML PO SCH ×2 (08:51→17:18)
[2016-08-29] MEDS: ASPIRIN 325 MG TABLET PO SCH (08:51)
[2016-08-29] MEDS: CALCIUM 600mg + VIT D 400 TABLET PO SCH ×2 (08:52→17:18)
[2016-08-29] MEDS: DIVALPROEX 250 MG TABLET PO SCH ×2 (08:52→17:18)
[2016-08-29] MEDS: DILTIAZEM CD 240mg CAP (QD) PO SCH (08:52)
[2016-08-29] MEDS: SIMETHICONE 80 MG CHEWABLE TABLET PO SCH ×3 (08:52→17:18)
[2016-08-29] MEDS: HYDROCHLOROTHIAZIDE 25 MG TABLET PO SCH (08:52)
[2016-08-29] MEDS: CYANOCOBALAMIN (B-12) 1000mcg/ml INJECTION SQ SCH (08:52)
--- NOTE | 2016-08-29 10:13 | NUR ---
Status Patient uses the call light at 0830 requesting to get ready for the day. She is pleasant and smiling, carries an appropriate conversation during cares. Staff provide stand-by/set-up help only. No voiced delusions, did not carry on a conversation with unseen people in the bathroom as had been the behavior two mornings last week when this RN was assigned her cares. She ate 100% of breakfast and took all medications whole without argument or incident. She got her hair curled by the activities acquisition consultant and actively participated in group with the executive secretary social welfare
--- NOTE | 2016-08-29 10:27 | NUR ---
FINISH PHOTOGRAPHER--AM GROUP Pt. was active participant in psychoeducational group facilitated by [facility]. Pt. was alert, Ox2, calm with pleasant mood. Topic was on ways to improve mood and importance of attitude and outlook. Listened to Semaj jordan, "Make the World Go Away." Talked about things that can impact our mood (physical ailments, poor sleep, loneliness). Pt. mentioned that when she finds herself in a grumpy mood, she turns to prayer. Another pt. indicated he likes to dance his problems away. This SW suggested listening to music, talking with supportive person, being mindful of the beauty that exists (sunrises, fagan, paintings, etc.). Discussed a short reading from Dylan Avila's book, All I Really Need to Know I learned in Kindergarten. Highlighted how those things mentioned are still important today. Finished up group with listening to Wesley harman. Pt. smiled often during group and provided encouraging words towards other participants.
[2016-08-29] MEDS: ACETAMINOPHEN 325 MG TABLET PO PRN ×2 (10:39→20:34)
--- NOTE | 2016-08-29 15:55 | GENPN ---
[facility]ations Subjective Date DATE: 08/29/16 TIME: 10:07 Subjective/Severity of Illness Medications Current Medications Medications (Trade) Dose Ordered Sig/Cm Start Time Stop Time Status Last Admin Dose Admin Miscellaneous Medication (May use PRN orders) 1 PRN PRN 08/22/16 21:15 Haloperidol (Haldol) 0.5 mg Q6H PRN 08/22/16 21:15 Lorazepam (Ativan) 0.5 mg Q6H PRN 08/22/16 21:15 Lorazepam (Ativan) 0.5 mg Q6H PRN 08/22/16 21:15 Haloperidol Lactate (Haldol 5 Mg/ml Inj) 0.5 mg Q6H PRN 08/22/16 21:15 Aspirin (ASA) 325 mg DAILY 08/23/16 09:00 08/29/16 08:51 325 MG Atorvastatin Calcium (LIPITOR 40 mg) 40 mg HS 08/23/16 21:00 08/26/16 15:21 DC 08/25/16 21:40 40 MG Calcium/Vitamin D (Caltrate + D) 1 tab BID 08/23/16 09:00 08/26/16 15:21 DC 08/26/16 09:22 1 TAB Diltiazem HCl (Cardizem Cd) 240 mg DAILY 08/23/16 09:00 08/29/16 08:52 240 MG Hydrochlorothiazide (Hydrodiuril) 25 mg QD 08/22/16 21:15 08/23/16 06:25 DC Simethicone (MYLICON 80 mg) 80 mg TID 08/23/16 09:00 08/26/16 15:21 DC 08/26/16 09:21 80 MG Potassium Chloride (KCl Oral Liq) 20 meq BIDWM 08/23/16 08:00 08/29/16 08:51 20 MEQ Hydrochlorothiazide (Hydrodiuril) 25 mg 09 08/23/16 09:00 08/29/16 08:52 25 MG Acetaminophen (Tylenol Regular Strength) 1-2 tabs Q5H PRN 08/22/16 22:15 08/22/16 22:16 650 MG Acetaminophen/ Hydrocodone Bitart ([place] 5/325) 1 tab Q4H PRN 08/23/16 01:45 08/28/16 19:01 1 TAB Divalproex Sodium (Depakote Sprinkle) 250 mg BID 08/25/16 21:00 08/26/16 09:12 DC Divalproex Sodium (Depakote) 250 mg BID 08/26/16 21:00 08/26/16 21:00 DC Atorvastatin Calcium (LIPITOR 40 mg) 40 mg 18 08/26/16 18:00 08/28/16 17:27 40 MG Calcium/Vitamin D (Caltrate + D) 1 tab ,08/26/16 18:00 08/29/16 08:52 1 TAB Divalproex Sodium (Depakote) 250 mg ,08/26/16 18:00 08/29/16 08:52 250 MG Simethicone (MYLICON 80 mg) 80 mg ,,08/26/16 18:00 08/29/16 08:52 80 MG Cyanocobalamin (Vit. B-12) 1,000 mcg DAILY 08/28/16 09:00 08/29/16 08:52 1,000 MCG Subjective Patient seen and chart reviewed. Case discussed with treatment team. Patient seen in her room and is pleasant and cooperative through interview, with bright affect. She reports that she is feeling well, in a good mood, and tolerating medications well. She does think a calendar in her room would be helpful to orient her. Per staff report, patient exhibited mild paranoia last night (asked staff to sprinkle powder in her room to prevent intruders) but was redirectable overall, without use of PRN or significant behavioral difficulty. She again did not remember that she took her pain medications already. She did bring this up today and we agreed to have staff give her written reminders of when she takes her PRN medications to lessen her confusion.. She has been adherent with medications. Patient slept 8.75 hours overnight. Appetite is good. Patient denies any adverse side effects due to medications or other concerns. VSS. No new labs. Psychotropic PRNs required in the past 24 hours: none Head CT upon admission: : Mild generalized atrophy. 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 The ventricles are of normal size, shape, and contour for the patient's age. There are scattered areas of low attenuation in the white matter which most likely represent changes from chronic microvascular ischemia. The brainstem, cerebellum, and cerebral hemispheres otherwise have a normal morphology and CT attenuation. There is no evidence of midline displacement. No hemorrhage, signs of acute territorial stroke, mass effect, mass lesions, or edema is evident. The visualized portions of the skull base, midface, and calvarium demonstrate no abnormality. The paranasal sinuses are well aerated and free of significant disease. The tympanic and mastoid cavities appear normal. IMPRESSION: No acute intracranial abnormality or hemorrhage. Time of Service: : Start Time: :00 Stop Time: :20 Care >50% of this visit spent in counseling/coordination care. Generations Exam Vitals Vital Signs Date Time Temp Pulse Resp B/P Pulse Ox O2 Delivery O2 Flow Rate FiO2 08/29/16 08:30 97.6 93 16 126/68 95 Room Air Physical examination performed by the hospitalist. Height (Feet): 5 Height (Inches): 6.00 Mental Status Exam Muscle Strength/Tone: Normal Dressing: Casual Grooming: Good Attitude: Cooperative Motor Activity: Normal Eye Contact: Good Speech: Normal Volume: Normal Rhythm: Appropriate Rhythm Sensory: Alert Orientation: Disoriented to time, Oriented to person, Oriented to place Mood: Euthymic Affect: Congruent Rate of Thoughts: Appropriate Rate Thought Organization: Organized (overall, pleasantly confused at times) Associations: Intact Abstract Reasoning: Poor abstract reasoning Thought Content: Paranoia (not current, worse in evenings, mild overall) Perception/Psychotic: Other (Not responding to internal stimuli, paranoia intermittent but denies AVH. 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 Plan: 1. Admit to [facility]: reviewed Labs and awaiting Vit B12 and folate 2. Re start home medications 08/24/16: Discussed starting ant-psychotic with patient's daughter and she would like to wait and make a decision tomorrow 08/25/16. Had discussion with daughter about medications. Discussed Depakote and at this time daughter would be more comfortable with Depakote due to side effects. We discussed how this could help with agitation but would not help with paranoia and delusions. We discussed we would start Depakote and if symptoms do no improve by Sunday we would talk again about antipsychotics. 08/26/16 continue current care 08/27/16 Continue current care 08/28/16: Will review use of antipsychotics and treatment goals with family. Continue current care until that time. 08/29/16: Patient doing well overall, mild paranoia but redirectable without use of antipsychotics. Will monitor for stability in the evening tonight with increased cueing as discussed. (2) Right shoulder pain Cont. current psych. meds Patient doing well overall, mild paranoia but redirectable without use of antipsychotics. Will monitor for stability in the evening tonight with increased cueing as discussed. LUISA SARGENT MD Aug 29, 2016 10:07
[2016-08-29 16:55] VITALS: BP 105/62; PULSE 87; RESP 16; TEMP 98.4; O2SAT 98
[2016-08-29] MEDS: ATORVASTATIN 40 MG TABLET PO SCH (17:18)
--- NOTE | 2016-08-29 18:16 | NUR ---
Shift Summary Patient has been pleasant and cooperative this shift, happy and appropriate in conversation and interactions with others. Staff have not observed any delusional behaviors including AVH. She ate 100% of breakfast and supper and 75% of lunch independently; she has taken all medications whole without argument or incident. Presently she is sitting and visiting with another female patient in the day room
[2016-08-29] MEDS: HYDROCODONE/APAP 5 mg/325 mg TABLET PO PRN (19:10)
[2016-08-29 19:46] VITALS: BP 127/80; PULSE 88; RESP 16; TEMP 97.4; O2SAT 99
--- NOTE | 2016-08-29 20:34 | NUR ---
prn note Pt having rt shoulder pain 12/28, even after [place] given, Tylenol 650mg po given,
--- NOTE | 2016-08-29 21:15 | NUR ---
bedtime Pt went to sleep at 21:15, pt slept zero to dayshift
[2016-08-29 21:26] VITALS: RESP 18
--- NOTE | 2016-08-29 21:34 | NUR ---
prn update Pt is now in bed with 2 bed rails up and bed alarm on.
--- NOTE | 2016-08-30 01:59 | NUR ---
Chart Check 24 hour chart check completed
--- NOTE | 2016-08-30 06:14 | NUR ---
shift summary Pt is alert and oriented x1, pt cooperative with assessment and vitals, pt took [place] at 19:10, pt changed into 2 gowns, agreed to have clothes washed, pt wheeled herself down to the dayroom, pt watched tv and ate a snack. Pt is in a happy mood, pt ate ice cream in dayroom, pt did get concerned that she did not receive her [place]. Pt reminded that she got the [place] by the dayshift nurse at 7pm. Pt stated that she received something other than the [place]. Pt stated her rt shoulder pain 12/28, pt agreed to take Tylenol at 20:34, pt ready for bed at 21:00, pt asleep at 21:15, pt has been sleeping since. Pt remains in bed with 2 bed rails up and bed alarm on.
--- NOTE | 2016-08-30 07:45 | NUR ---
Patient slept for a total of 10.25 hour last night
[2016-08-30 08:02] VITALS: BP 110/77; PULSE 97; RESP 16; TEMP 97.4; O2SAT 96
[2016-08-30] MEDS: DILTIAZEM CD 240mg CAP (QD) PO SCH (08:04)
[2016-08-30] MEDS: SIMETHICONE 80 MG CHEWABLE TABLET PO SCH ×3 (08:04→17:28)
[2016-08-30] MEDS: ASPIRIN 325 MG TABLET PO SCH (08:04)
[2016-08-30] MEDS: HYDROCHLOROTHIAZIDE 25 MG TABLET PO SCH (08:04)
[2016-08-30] MEDS: CALCIUM 600mg + VIT D 400 TABLET PO SCH ×2 (08:04→17:28)
[2016-08-30] MEDS: DIVALPROEX 250 MG TABLET PO SCH ×2 (08:04→17:28)
[2016-08-30] MEDS: POTASSIUM CHLORIDE 20 MEQ/15 ML PO SCH ×2 (08:04→17:28)
[2016-08-30] MEDS: CYANOCOBALAMIN (B-12) 1000mcg/ml INJECTION SQ SCH (08:05)
--- NOTE | 2016-08-30 10:38 | NUR ---
Patient Status Patient is up at 0745 for AM cares, mostly independent requiring only set-up/supervision from staff. She is oriented to person and place, pleasant mood, bright and happy affect. She recalls some activity from yesterday when this selling underwriter and patient were paired together. She ate 100% of breakfast and took all medications whole without argument or incident. Presently she is in the day room with SW and others participation in group activity
--- NOTE | 2016-08-30 10:55 | NUR ---
DIRECTOR NURSES' REGISTRY--AM GROUP Pt. was present and actively engaged in psychoeducational group facilitated by [facility]. Activity was neurocognitive guessing game involving an Easter theme of trivia. Pt. was alert, Ox2 with pleasant mood. She was happy about hearing news that she would be discharging tomorrow back to her facility. Pt. was observed answering many of the questions. She would encourage others to participate and cheered them on when they got answers correct. Ended group by listening to a variety of Easter themed songs.
--- NOTE | 2016-08-30 11:44 | GENPN ---
Generations Subjective Date DATE: 08/30/16 TIME: 11:40 Subjective/Severity of Illness Medications Current Medications Medications (Trade) Dose Ordered Sig/Cm Start Time Stop Time Status Last Admin Dose Admin Miscellaneous Medication (May use PRN orders) 1 PRN PRN 08/22/16 21:15 Haloperidol (Haldol) 0.5 mg Q6H PRN 08/22/16 21:15 Lorazepam (Ativan) 0.5 mg Q6H PRN 08/22/16 21:15 Lorazepam (Ativan) 0.5 mg Q6H PRN 08/22/16 21:15 Haloperidol Lactate (Haldol 5 Mg/ml Inj) 0.5 mg Q6H PRN 08/22/16 21:15 Aspirin (ASA) 325 mg DAILY 08/23/16 09:00 08/30/16 08:04 325 MG Atorvastatin Calcium (LIPITOR 40 mg) 40 mg HS 08/23/16 21:00 08/26/16 15:21 DC 08/25/16 21:40 40 MG Calcium/Vitamin D (Caltrate + D) 1 tab BID 08/23/16 09:00 08/26/16 15:21 DC 08/26/16 09:22 1 TAB Diltiazem HCl (Cardizem Cd) 240 mg DAILY 08/23/16 09:00 08/30/16 08:04 240 MG Hydrochlorothiazide (Hydrodiuril) 25 mg QD 08/22/16 21:15 08/23/16 06:25 DC Simethicone (MYLICON 80 mg) 80 mg TID 08/23/16 09:00 08/26/16 15:21 DC 08/26/16 09:21 80 MG Potassium Chloride (KCl Oral Liq) 20 meq BIDWM 08/23/16 08:00 08/30/16 08:04 20 MEQ Hydrochlorothiazide (Hydrodiuril) 25 mg 09 08/23/16 09:00 08/30/16 08:04 25 MG Acetaminophen (Tylenol Regular Strength) 1-2 tabs Q5H PRN 08/22/16 22:15 08/29/16 20:34 650 MG Acetaminophen/ Hydrocodone Bitart ([place] 5/325) 1 tab Q4H PRN 08/23/16 01:45 08/29/16 19:10 1 TAB Divalproex Sodium (Depakote Sprinkle) 250 mg BID 08/25/16 21:00 08/26/16 09:12 DC Divalproex Sodium (Depakote) 250 mg BID 08/26/16 21:00 08/26/16 21:00 DC Atorvastatin Calcium (LIPITOR 40 mg) 40 mg 18 08/26/16 18:00 08/29/16 17:18 40 MG Calcium/Vitamin D (Caltrate + D) 1 tab 08/26/16 18:00 08/30/16 08:04 1 TAB Divalproex Sodium (Depakote) 250 mg ,08/26/16 18:00 08/30/16 08:04 250 MG Simethicone (MYLICON 80 mg) 80 mg ,,08/26/16 18:00 08/30/16 08:04 80 MG Cyanocobalamin (Vit. B-12) 1,000 mcg DAILY 08/28/16 09:00 08/30/16 08:05 1,000 MCG Subjective Patient seen and chart reviewed. Case discussed with treatment team. Patient seen in her room and is pleasant and cooperative through interview, with bright affect. She reports that she is feeling well, in a good mood, and tolerating medications well. She is hopeful of discharging home by [facility] to attend amish services. Per staff report, patient is forgetful at times about when she took PRN medications but has been more redirectable. No further observations of her speaking to herself on the unit. No recent paranoia/delusions. She has been adherent with medications. Patient slept 10.25 hours overnight. Appetite is good. Patient denies any adverse side effects due to medications or other concerns. VSS. No new labs. Psychotropic PRNs required in the past 24 hours: none Head CT upon admission: : Mild generalized atrophy. 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 The ventricles are of normal size, shape, and contour for the patient's age. There are scattered areas of low attenuation in the white matter which most likely represent changes from chronic microvascular ischemia. The brainstem, cerebellum, and cerebral hemispheres otherwise have a normal morphology and CT attenuation. There is no evidence of midline displacement. No hemorrhage, signs of acute territorial stroke, mass effect, mass lesions, or edema is evident. The visualized portions of the skull base, midface, and calvarium demonstrate no abnormality. The paranasal sinuses are well aerated and free of significant disease. The tympanic and mastoid cavities appear normal. IMPRESSION: No acute intracranial abnormality or hemorrhage. Time of Service: 09:00 Start Time: 08:40 Stop Time: 09:00 Care >50% of this visit spent in counseling/coordination care. Generations Exam Vitals Vital Signs Date Time Temp Pulse Resp B/P Pulse Ox O2 Delivery O2 Flow Rate FiO2 08/30/16 08:02 97.4 97 16 110/77 96 Room Air Physical examination performed by the hospitalist. Height (Feet): 5 Height (Inches): 6.00 Mental Status Exam Muscle Strength/Tone: Normal Dressing: Casual Grooming: Good Attitude: Cooperative Motor Activity: Normal Eye Contact: Good Speech: Normal Volume: Normal Rhythm: Appropriate Rhythm Sensory: Alert Orientation: Disoriented to time, Oriented to person, Oriented to place Mood: Euthymic Affect: Congruent Rate of Thoughts: Appropriate Rate Thought Organization: Organized (mostly) Associations: Intact Abstract Reasoning: Intact, able to abstract Thought Content: Normal Perception/Psychotic: Perception Normal Attention Span/Concentration: Normal Language: Naming Intact Fund of Knowledge: Vijaya aware current events Memory: Poor-recent Suicidal Ideation: Denies Homicidal Ideation: Denies Insight: Limited Judgment: Limited Impulse Control: Good Assessment and Plan (1) Major neurocognitive disorder Assessment: with Behavioral disturbance, multiple etiologies suspected ( including vascular) - 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 Plan: 1. Admit to [facility]: reviewed Labs and awaiting Vit B12 and folate 2. Re start home medications 08/24/16: Discussed starting ant-psychotic with patient's daughter and she would like to wait and make a decision tomorrow 08/25/16. Had discussion with daughter about medications. Discussed Depakote and at this time daughter would be more comfortable with Depakote due to side effects. We discussed how this could help with agitation but would not help with paranoia and delusions. We discussed we would start Depakote and if symptoms do no improve by Sunday we would talk again about antipsychotics. 08/26/16 continue current care 08/27/16 Continue current care 08/28/16: Will review use of antipsychotics and treatment goals with family. Continue current care until that time. 08/29/16: Patient doing well overall, mild paranoia but redirectable without use of antipsychotics. Will monitor for stability in the evening tonight with increased cueing as discussed. 08/30/16: Patient continues to do well. Will finalized discharge planning with family and living facility. (2) Right shoulder pain (3) Hyperlipidemia (4) HTN (hypertension) (5) Overweight (BMI 25.0-29.9) (6) CAD (coronary artery disease) (7) GERD (gastroesophageal reflux disease) Cont. current psych. meds Patient continues to do well. Will finalized discharge planning with family and living facility. LUISA SARGENT MD Aug 30, 2016 11:43
[2016-08-30] MEDS ORDERED: DIVA250T4 PO (11:50)
--- NOTE | 2016-08-30 11:51 | PDOCECFAO ---
Admission Orders Admission Orders Admit to: [facility] Allergies: Coded Allergies: Penicillins (Verified Allergy, Unknown, 08/22/16) Sulfa (Sulfonamide Antibiotics) (Verified Allergy, Unknown, 08/22/16) iodine (Verified Allergy, Unknown, 08/22/16) latex (Verified Allergy, Unknown, 08/22/16) Admitting Diagnosis Major neurocognitive disorder due to multiple etiologies, including vascular Admitting Physician Azeb Sargent MD Attending Physician Azeb Sargent MD Code Status Do Not Resuscitate Anticipated LOS: Greater than 30 days Rehab Potential: Good Rehab Prognosis: Good Diet: Regular (Cardiac diet) Wound/Incision Care: N/A May use Facility Protocol /SO: Yes May Have Flu Vaccine: Yes Evaluations/Treat: Psychiatric, As Needed Care Home Certification I certify that SNF services are required to be given on an Inpatient basis because of the patients need for jail care on a continuing basis for the condition(s) for which he/she received inpatient hospital services prior to his/her transfer to the SNF. SNF inpatient care is necessary for the following reasons Not Applicable AZEB SARGENT MD Aug 30, 2016 11:51
--- NOTE | 2016-08-30 15:15 | NUR ---
HOSTESS HOST--PM GROUP Pt. participated in psychoeducational group facilitated by [facility]. Topic was on importance of using all their skills, including their thinking skills. Encouraged participants to try, at whatever level they are able, to participate in activities in their living community. Pt. was alert, OX3 (she knew this weekend was Easter). Participants were asked several questions and given opportunity to provide variety of answers. Pt. was eager to participate. She demonstrated positive attitude towards others and enjoyed the social interaction between staff and peers.
--- NOTE | 2016-08-30 15:42 | NUR ---
JANETH SARGENT WILL D/C PT BACK TO [facility] TOMORROW. THE FACILITY WILL BALANCE STAFF STAKER PT AT 12 NOON. [facility] STAFF ARE AWARE. JANETH SPOKE WITH YURI PT DAUGHTER REGARDING D/C PLAN FOR TOMORROW. YURI AWARE TO CONTACT JANETH IF NEEDS ARISE.
[2016-08-30 16:04] VITALS: BP 94/65; PULSE 77; RESP 16; TEMP 97.8; O2SAT 96
--- NOTE | 2016-08-30 17:11 | PNPDOC ---
Subjective Date DATE: 08/30/16 TIME: 17:05 Subjective Rossi is seen sitting in the dayroom. She is very pleasant. She reports that she is doing well. She denies chest pain or shortness of air. Blood pressure 110 /77 Objective Vital Signs Vital signs Vital Signs Date Time Temp Pulse Resp B/P Pulse Ox O2 Delivery O2 Flow Rate FiO2 08/30/16 16:04 97.8 77 16 94/65 96 Room Air Height (Feet): 5 Height (Inches): 6.00 Weight (Kilograms): 75.800 General General Appearance: Alert, Cooperative, No Acute Distress Respiratory (Brief) Respiratory: FOUND: clear all goldstein, equal bilaterally Cardiovascular (Brief) Cardiac: FOUND: regular rate, regular rhythm Abdomen (Brief) Abdominal: FOUND: BS normo active x4, soft Integumentary (Brief) Integumentary: FOUND: dry, pink, warm Neurologic (Brief) Neurological: FOUND: cranial 2-12 intact Psychiatric (Brief) Psychiatric: FOUND: alert, normal affect Assessment & Plan Problems: (1) Dementia with behavioral disturbance Status: Acute (2) Atrial fibrillation Status: Chronic (3) CAD (coronary artery disease) Status: Chronic (4) Hyperlipidemia Status: Chronic (5) HTN (hypertension) Status: Chronic (6) Constipation Status: Chronic (7) GERD (gastroesophageal reflux disease) Status: Chronic (8) Right shoulder pain Status: Chronic (9) Overweight (BMI 25.0-29.9) Status: Chronic (10) Vitamin B12 deficiency Assessment & Plan: Injections started 08/27/16 Plan/Intensity of Service 08/30/16 Continue with Vitamin B12 injection x 1 week then change to oral Medically stable-- mild hypotension at times. Will continue to monitor. Imaging studies indicate no acute cardiopulmonary disease or no acute intracranial abnormality or hemorrhage. Continue Lipitor, Diltiazem, Drew PRN, HCTZ and KCL. Reviewed psychiatric documentation. Code Status Do Not Resuscitate Hospital Course Summary Disclaimer The hospital course summary below is not to be considered part of the above Progress Note. Hospital Course Summary 08/23/16 Agree with admission. Labs reviewed - stable. A-fib - Cont ASA 325 and diltiazem. Rate controlled. HTN & dyslipidemia - cont. home meds. Chronic right shoulder pain - pt reports she's "missing the rotator cuff" - Drew and Tylenol PRN. F/U on pending labs and imaging. Dementia with delusional thinking - per attending. 08/27/16 Vit. B12 deficiency - start daily injections x1 week, then consider changing to PO Otherwise Medically stable - cont to monitor HR, occ. tachycardia (known Afib) Psych progress notes reviewed. Imaging studies pending. PEARL GASTON APRN Aug 30, 2016 17:11 PERAL GASTON APRN Aug 30, 2016 17:11
[2016-08-30] MEDS: ATORVASTATIN 40 MG TABLET PO SCH (17:28)
[2016-08-30] MEDS: HYDROCODONE/APAP 5 mg/325 mg TABLET PO PRN (17:28)
--- NOTE | 2016-08-30 17:59 | NUR ---
Shift Summary Patient has remained pleasant and cooperative all through the shift; able to make needs known, takes all medications whole and without argument or incident. [place] 5/325 given at supper per request for right shoulder pain rated 6/10
[2016-08-30 21:22] VITALS: BP 115/64; PULSE 73; RESP 16; TEMP 97.6; O2SAT 96
--- NOTE | 2016-08-30 21:43 | NUR ---
SHIFT SUMMARY PATIENT HAS BEEN PLEASANT AND COOPERATIVE MOST OF THE EVENING. SHE DID GET UPSET AROUND 1999 BECAUSE SHE REQUESTED A NORCO AND SHE WAS TOLD SHE COULD NOT HAVE ONE YET BUT SHE WOULD BE ABLE TO GET TYLENOL IN ABOUT 1 HOUR. SHE STATES THAT SHE WAS HAVING DISCOMFORT IN HER RIGHT SHOULDER. SHE CONTINUED TO BE UPSET AND REQUESTED TO GO TO BED. NO PRN'S GIVEN. SHE REMAINED IN BED WITH BED RAILS UP AND BED ALARM ON. WHEN SHE WAS DUE FOR TYLENOL SHE WAS FAST ASLEEP AND REQUESTED TO NOT BE WAKEN IF SHE WAS ASLEEP.
--- NOTE | 2016-08-30 22:00 | NUR ---
sleep pt asleep in bed
--- NOTE | 2016-08-31 06:23 | NUR ---
summary arrived on unit, patient was asleep in bed. patient slept throughout the shift, except to go to the restroom around 0245. During the time patient appeared happy and had a bright affect. Patient was appropriate with staff. Patient stated how she was excited to go home in the morning. No delusions noted, no prns given. Patient is currently asleep in bed with the bed alarm on, rails upx2, and call light is in reach.
[2016-08-31 08:00] VITALS: BP 125/77; PULSE 89; RESP 16; TEMP 97.3; O2SAT 98
[2016-08-31] MEDS: POTASSIUM CHLORIDE 20 MEQ/15 ML PO SCH (09:20)
[2016-08-31] MEDS: SIMETHICONE 80 MG CHEWABLE TABLET PO SCH (09:20)
[2016-08-31] MEDS: HYDROCHLOROTHIAZIDE 25 MG TABLET PO SCH (09:21)
[2016-08-31] MEDS: CYANOCOBALAMIN (B-12) 1000mcg/ml INJECTION SQ SCH (09:21)
[2016-08-31] MEDS: CALCIUM 600mg + VIT D 400 TABLET PO SCH (09:21)
[2016-08-31] MEDS: DILTIAZEM CD 240mg CAP (QD) PO SCH (09:21)
[2016-08-31] MEDS: DIVALPROEX 250 MG TABLET PO SCH (09:21)
--- NOTE | 2016-08-31 09:55 | NUR ---
[employer]ULTANT--AM GROUP Pt. was present and actively engaged in psychoeducational group facilitated by [facility]. Reminded participants that while change is part of life, some things don't seem to change--like their individual "favorites." Talked with patients about their favorite Easter candies, favorite flavors, and favorite colors. Played a new version of Easter Trivia in order to help encourage socialization and stimulate cognitive functioning. Pt. was able to answer all questions correctly and tried to encourage other patients with less abilities to participate. Finished group by listening to three Worship hymns related to Easter. Pt. expressed gratitude for the time she spent in group. She said it lifts her "spirit" to participate.
[2016-08-31] MEDS: ASPIRIN 325 MG TABLET PO SCH (10:14)
[2016-08-31] MEDS ORDERED: ACET-2321 PO (10:48)
[2016-08-31] MEDS ORDERED: CYAN10006 SQ (12:07)
[2016-08-31] MEDS ORDERED: HYDR-4246 PO (12:07)
--- NOTE | 2016-08-31 12:46 | NUR ---
DISCHARGE NOTE Patient was discharge today at 12:15 to [facility], family was not present during dismissal, patient was in a good condition during dismissal, she was cleaned and dressed appropriately, all belongings were send with patient. Patient was happy and excited she was going home. Staff from [facility] was here to pick her up. Discharge package was given to [facility] staff as well as faxed to nursing facility. Patient was escorted by [facility] staff to main entrance via Wheel chair. Report called to "___Jessica SÁNCHEZ at 12:20 "; unit contact information given along with plans for follow-up care with PCP and MH professional as outlined in [facility]. No pending labs on discharge
--- NOTE | 2016-08-31 20:59 | GENPN ---
[facility] Subjective Date DATE: 08/31/16 TIME: 20:50 Subjective/Severity of Illness Medications Current Medications Medications (Trade) Dose Ordered Sig/Cm Start Time Stop Time Status Last Admin Dose Admin Miscellaneous Medication (May use PRN orders) 1 PRN PRN 08/22/16 21:15 08/31/16 12:57 DC Haloperidol (Haldol) 0.5 mg Q6H PRN 08/22/16 21:15 08/31/16 12:57 DC Lorazepam (Ativan) 0.5 mg Q6H PRN 08/22/16 21:15 08/31/16 12:57 DC Lorazepam (Ativan) 0.5 mg Q6H PRN 08/22/16 21:15 08/31/16 12:57 DC Haloperidol Lactate (Haldol 5 Mg/ml Inj) 0.5 mg Q6H PRN 08/22/16 21:15 08/31/16 12:57 DC Aspirin (ASA) 325 mg DAILY 08/23/16 09:00 08/31/16 12:57 DC 08/31/16 10:14 325 MG Atorvastatin Calcium (LIPITOR 40 mg) 40 mg HS 08/23/16 21:00 08/26/16 15:21 DC 08/25/16 21:40 40 MG Calcium/Vitamin D (Caltrate + D) 1 tab BID 08/23/16 09:00 08/26/16 15:21 DC 08/26/16 09:22 1 TAB Diltiazem HCl (Cardizem Cd) 240 mg DAILY 08/23/16 09:00 08/31/16 12:57 DC 08/31/16 09:21 240 MG Hydrochlorothiazide (Hydrodiuril) 25 mg QD 08/22/16 21:15 08/23/16 06:25 DC Simethicone (MYLICON 80 mg) 80 mg TID 08/23/16 09:00 08/26/16 15:21 DC 08/26/16 09:21 80 MG Potassium Chloride (KCl Oral Liq) 20 meq BIDWM 08/23/16 08:00 08/31/16 12:57 DC 08/31/16 09:20 20 MEQ Hydrochlorothiazide (Hydrodiuril) 25 mg 09 08/23/16 09:00 08/31/16 12:57 DC 08/31/16 09:21 25 MG Acetaminophen (Tylenol Regular Strength) 1-2 tabs Q5H PRN 08/22/16 22:15 08/31/16 12:57 DC 08/29/16 20:34 650 MG Acetaminophen/ Hydrocodone Bitart ([place] 5/325) 1 tab Q4H PRN 08/23/16 01:45 08/31/16 12:57 DC 08/30/16 17:28 1 TAB Divalproex Sodium (Depakote Sprinkle) 250 mg BID 08/25/16 21:00 08/26/16 09:12 DC Divalproex Sodium (Depakote) 250 mg BID 08/26/16 21:00 08/26/16 21:00 DC Atorvastatin Calcium (LIPITOR 40 mg) 40 mg 18 08/26/16 18:00 08/31/16 12:57 DC 08/30/16 17:28 40 MG Calcium/Vitamin D (Caltrate + D) 1 tab 08/26/16 18:00 08/31/16 12:57 DC 08/31/16 09:21 1 TAB Divalproex Sodium (Depakote) 250 mg 08/26/16 18:00 08/31/16 12:57 DC 08/31/16 09:21 250 MG Simethicone (MYLICON 80 mg) 80 mg 08/26/16 18:00 08/31/16 12:57 DC 08/31/16 09:20 80 MG Cyanocobalamin (Vit. B-12) 1,000 mcg DAILY 08/28/16 09:00 08/31/16 12:57 DC 08/31/16 09:21 1,000 MCG Subjective Patient seen and chart reviewed. Case discussed with treatment team. Patient in dayroom on approach, socializing with staff and peers. She is pleasant and cooperative through interview, with bright affect. She reports that she is feeling well, in a good mood, and tolerating medications well. She is looking forward to [facility] to attend religion services. Per staff report, patient has been cooperative and redirectable overall. She has been adherent with medications. She does state today that "she needs to stay calm if she doesn't get her pain medications when she wants them" and that the nurse is doing their best. I explained to her that the medications we are using are to help with her mood stability and she agrees with this. Patient slept 10 hours overnight. Appetite is good. Patient denies any adverse side effects due to medications or other concerns. VSS. No new labs. Psychotropic PRNs required in the past 24 hours: none Head CT upon admission: : Mild generalized atrophy. 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 The ventricles are of normal size, shape, and contour for the patient's age. There are scattered areas of low attenuation in the white matter which most likely represent changes from chronic microvascular ischemia. The brainstem, cerebellum, and cerebral hemispheres otherwise have a normal morphology and CT attenuation. There is no evidence of midline displacement. No hemorrhage, signs of acute territorial stroke, mass effect, mass lesions, or edema is evident. The visualized portions of the skull base, midface, and calvarium demonstrate no abnormality. The paranasal sinuses are well aerated and free of significant disease. The tympanic and mastoid cavities appear normal. IMPRESSION: No acute intracranial abnormality or hemorrhage. Time of Service: 09:00 Start Time: 11:20 Stop Time: 11:40 Care >50% of this visit spent in counseling/coordination care. [facility] Exam Vitals Vital Signs Date Time Temp Pulse Resp B/P Pulse Ox O2 Delivery O2 Flow Rate FiO2 08/31/16 08:00 89 16 08/31/16 08:00 97.3 125/77 98 Room Air Physical examination performed by the hospitalist. Height (Feet): 5 Height (Inches): 6.00 Mental Status Exam Muscle Strength/Tone: Normal Dressing: Casual Grooming: Good Attitude: Cooperative Motor Activity: Normal Eye Contact: Good Speech: Normal Volume: Normal Rhythm: Appropriate Rhythm Sensory: Alert Orientation: Disoriented to time, Oriented to person, Oriented to place Mood: Euthymic Affect: Congruent, Stable Rate of Thoughts: Appropriate Rate Thought Organization: Organized Associations: Intact Abstract Reasoning: Poor abstract reasoning Thought Content: Normal Perception/Psychotic: Perception Normal Attention Span/Concentration: Short Span Language: Naming Intact Fund of Knowledge: Other (Decreased) Memory: Poor-recent Suicidal Ideation: Denies Homicidal Ideation: Denies Insight: Limited Judgment: Limited Impulse Control: Good Assessment and Plan (1) Major neurocognitive disorder Assessment: with Behavioral disturbance, multiple etiologies suspected ( including vascular) - 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 Plan: 1. Admit to [facility]: reviewed Labs and awaiting Vit B12 and folate 2. Re start home medications 08/24/16: Discussed starting ant-psychotic with patient's daughter and she would like to wait and make a decision tomorrow 08/25/16. Had discussion with daughter about medications. Discussed Depakote and at this time daughter would be more comfortable with Depakote due to side effects. We discussed how this could help with agitation but would not help with paranoia and delusions. We discussed we would start Depakote and if symptoms do no improve by Sunday we would talk again about antipsychotics. 08/26/16 continue current care 08/27/16 Continue current care 08/28/16: Will review use of antipsychotics and treatment goals with family. Continue current care until that time. 08/29/16: Patient doing well overall, mild paranoia but redirectable without use of antipsychotics. Will monitor for stability in the evening tonight with increased cueing as discussed. 08/30/16: Patient continues to do well. Will finalized discharge planning with family and living facility. 08/31/16: Discharge back to living facility today. (2) Right shoulder pain (3) Hyperlipidemia (4) HTN (hypertension) (5) Overweight (BMI 25.0-29.9) (6) CAD (coronary artery disease) (7) GERD (gastroesophageal reflux disease) Cont. current psych. meds Discharge today. LUISA SARGENT MD Aug 31, 2016 20:53
== END 2016-08-31 12:56 | DRG 884 ==
LOC: ED 17:10 → GEN 20:05
PROVIDERS: ADMIT Psychiatry & Neurology Psychiatry; ATTEND Psychiatry & Neurology Psychiatry
DX: F03.91 Unspecified dementia, unspecified severity, with behavioral disturbance (principal); I48.91 Unspecified atrial fibrillation; I25.10 Atherosclerotic heart disease of native coronary artery without angina pectoris; I10 Essential (primary) hypertension; E78.5 Hyperlipidemia, unspecified; K59.00 Constipation, unspecified; K21.9 Gastro-esophageal reflux disease without esophagitis; M25.511 Pain in right shoulder; E66.3 Overweight; Z66 Do not resuscitate; E53.8 Deficiency of other specified B group vitamins; Z79.82 Long term (current) use of aspirin; Z95.5 Presence of coronary angioplasty implant and graft; Z68.27 Body mass index [BMI] 27.0-27.9, adult
CPT/HCPCS: 36415; 80053; 80061; 80306; 81003; 82607; 82746; 83036; 84134; 84443; 85025; 86592; 93005